=== PATIENT | female | born 1980 | race African-American/Black ===

== ENCOUNTER 2016-08-12 18:25 | Emergency (ER) | payer OTHER ==
[2016-08-12 18:41] VITALS: BP 128/71; PULSE 84; RESP 20; TEMP 99.2
[2016-08-12] MEDS ORDERED: PROPARACAINE 0.5% OPHTH DROPS 15 ML BTL BOTH EYES STA (18:57)
--- NOTE | 2016-08-12 19:14 | ED ---
Eye Problem HPI - General Chief complaint: Eye Problems Stated complaint: allergic reaction Time Seen by Provider: 08/12/16 18:44 Source: patient, RN notes reviewed, old records reviewed Mode of arrival: ambulatory Limitations: no limitations - History of Present Illness Initial comments: 36-year-old female presents to emergency department complaining of swelling and irritation in her left eye. Patient reports that she's had this for the past day. 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 Patient also reports that she had some mosquito bites above her eye and it was very itchy. Patient reports that she put some aloe on the mosquito bites that she may be septic or ALLERGIC reaction to the aloe. Patient states that she's had no change in vision, no drainage of eye. Patient denies any recent fever, chills, shortness of breath, chest pain, back pain, abdominal pain , nausea vomiting, numbness or tingling, dysuria or hematuria, constipation or diarrhea, headaches or visual changes, or any other current symptoms - Related Data Home Medications Medication Instructions Recorded Confirmed Acetaminophen Tab [Tylenol] 500 mg PO Q6H PRN 10/28/15 10/28/15 RX: Albuterol Inhaler [Ventolin 2 puff INHALATION RT-Q6H PRN 10/28/15 10/28/15 Hfa Inhaler] Previous Rx's Medication Instructions Recorded RX: Ibuprofen [Motrin] 600 mg PO Q8HR PRN #30 tab 10/28/15 Olopatadine HCl [Pataday] 1 drop LEFT EYE BID #1 bottle 08/12/16 RX: Erythromycin Ophth Oint 1 applic LEFT EYE QID #1 tube 08/12/16 [Romycin Ophth Oint] Allergies Allergy/AdvReac Type Severity Reaction Status Date / Time No Known Allergies Allergy Verified 08/12/16 18:41 Review of Systems ROS Statement: Those systems with pertinent positive or pertinent negative responses have been documented in the HPI. ROS Other: All systems not noted in ROS Statement are negative. Past Medical History Past Medical History: Asthma History of Any Multi-Drug Resistant Organisms: None Reported Past Surgical History: Section Past Psychological History: Anxiety Smoking Status: Never smoker Past Alcohol Use History: None Reported Past Drug Use History: None Reported General Exam - General Exam Comments Initial Comments: Well-appearing 36-year-old female. No acute distress. Limitations: no limitations General appearance: alert, in no apparent distress Head exam: Present: atraumatic, normocephalic, normal inspection Eye exam: Present: normal appearance, PERRL, EOMI, periorbital swelling (Left eye inferior. Orbital swelling.), other. Absent: scleral icterus, conjunctival injection ENT exam: Present: normal exam, mucous membranes moist Neck exam: Present: normal inspection. Absent: tenderness, meningismus, lymphadenopathy Respiratory exam: Present: normal lung sounds bilaterally. Absent: respiratory distress, wheezes, rales, rhonchi, stridor Cardiovascular Exam: Present: regular rate, normal rhythm, normal heart sounds. Absent: systolic murmur, diastolic murmur, rubs, gallop, clicks GI/Abdominal exam: Present: soft, normal bowel sounds. Absent: distended, tenderness, guarding, rebound, rigid Extremities exam: Present: normal inspection, full ROM, normal capillary refill. Absent: tenderness, pedal edema, joint swelling, calf tenderness Back exam: Present: normal inspection Neurological exam: Present: alert, oriented X3, CN II-XII intact Psychiatric exam: Present: normal affect, normal mood Skin exam: Present: warm, dry, intact, normal color. Absent: rash Course Vital Signs 08/12/16 18:39 Temperature 99.2 F Pulse Rate 84 Respiratory 20 Rate Blood Pressure 128/71 O2 Sat by Pulse 99 Oximetry Medical Decision Making - Medical Decision Making 36-year-old female presents to emergency department complaining of swelling and irritation in her left eye. Patient reports that she's had this for the past day. 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 Patient also reports that she had some mosquito bites above her eye and it was very itchy. Patient reports that she put some aloe on the mosquito bites that she may be septic or ALLERGIC reaction to the aloe. Patient states that she's had no change in vision, no drainage of eye. Vision is some mild inferior and swelling. I exam is performed before seen and proparacaine. Notes any foreign bodies. Patient was started on an ALLERGIC eyedrops, and also erythromycin eye ointment that she is concerned for possible infection. Discussed applying ice over the area. Patient which is ALLERGIC to Benadryl. Discussed that ice will help the most. Patient understood history plan will comply. Return parameters were discussed. Disposition Clinical Impression: Allergic conjunctivitis Disposition: HOME SELF-CARE Condition: Good Instructions: Conjunctivitis (ED) Additional Instructions: Apply the drops and eye twice a day as well as given ointment 4 times a day for the next 3 days. Continue to apply ice over the area. Return to the emergency department if any alarming signs or symptoms occur. Prescriptions: RX: Erythromycin Ophth Oint [Romycin Ophth Oint] 1 applic LEFT EYE QID #1 tube Olopatadine HCl [Pataday] 1 drop LEFT EYE BID #1 bottle Referrals: Alexy Rosado MD [STAFF PHYSICIAN] - 1-2 days Time of Disposition: 19:11
== END 2016-08-12 19:20 | disposition home or self-care (01) ==
LOC: EC 18:25
DX: H10.12 Acute atopic conjunctivitis, left eye (principal)
CPT/HCPCS: 99283

== ENCOUNTER 2016-08-23 08:29 | Emergency (ER) | payer OTHER ==
[2016-08-23 08:40] VITALS: BP 117/69; PULSE 61; RESP 18; TEMP 97.4
--- NOTE | 2016-08-23 08:56 | ED ---
Skin/Abscess/FB HPI - General Chief complaint: Skin/Abscess/Foreign Body Stated complaint: POSS INSECT BITE Time Seen by Provider: 08/23/16 08:44 Source: patient, RN notes reviewed Mode of arrival: ambulatory Limitations: no limitations - History of Present Illness Initial comments: 36-year-old female presents to the emergency department with a chief complaint of insect bites to the right forearm. Patient states that there is mosquito that requesting to up this morning with itching mosquito bites and swelling to the right forearm. Patient denies any fever chills cough cold runny nose. Patient states that she hasn't had any injury to the area. She hasn't had any fever or chills. Patient states she was concerned due to her symptoms so she thought that she should be evaluated. Patient denies any recent fever, chills, shortness of breath, chest pain, back pain, abdominal pain, nausea vomiting, numbness or tingling, dysuria or hematuria, constipation or diarrhea, headaches or visual changes, or any other current symptoms. - Related Data Home Medications Medication Instructions Recorded Confirmed No Known Home Medications [No 08/23/16 08/23/16 Known Home Medications] Previous Rx's Medication Instructions Recorded Cephalexin [Keflex] 500 mg PO Q6HR #40 cap 08/23/16 diphenhydrAMINE & Zinc Cream 1 applic TOPICAL BID #1 tube 08/23/16 [Benadryl Cream] Allergies Allergy/AdvReac Type Severity Reaction Status Date / Time No Known Allergies Allergy Verified 08/23/16 08:40 Review of Systems ROS Statement: Those systems with pertinent positive or pertinent negative responses have been documented in the HPI. ROS Other: All systems not noted in ROS Statement are negative. Past Medical History Past Medical History: Asthma History of Any Multi-Drug Resistant Organisms: None Reported Past Surgical History: Section Past Psychological History: No Psychological Hx Reported Smoking Status: Never smoker Past Alcohol Use History: None Reported Past Drug Use History: None Reported General Exam - General Exam Comments Initial Comments: General: The patient is awake and alert, in no distress, and does not appear acutely ill. Neck: The neck is supple, there is no tenderness. Cardiovascular: There is a regular rate and rhythm. No murmur, rub or gallop is appreciated. Respiratory: Lungs are clear to auscultation, respirations are non-labored, breath sounds are equal. No wheezes, stridor, rales, or rhonchi. Musculoskeletal: Sensation intact with 2+ pulses of the right upper extremity full Range of motion of right elbow and right wrist. Patient does appear to have 3 consecutive that are swollen no induration minimal erythema noted. Patient does complain of itchiness. There does not appear to be any drainage from the areas. It is not limiting patient's range of motion. No streaking. Neurological: CN II-XII intact, There are no obvious motor or sensory deficits. Coordination appears grossly intact. Speech is normal. Skin: Skin is warm and dry and no rashes or lesions are noted. Psychiatric: Normal mood and affect. Limitations: no limitations Course Vital Signs 08/23/16 08:37 Temperature 97.4 F L Pulse Rate 61 Respiratory 18 Rate Blood Pressure 117/69 O2 Sat by Pulse 99 Oximetry Medical Decision Making - Medical Decision Making 36-year-old female presents for insect bite to the right forearm. This was a patient of Benadryl cream and Keflex. We discussed follow-up with the doctor we discussed return parameters all patient's questions. She stated that she understood and she does agree with the plan. Patient will be discharged home. Disposition Clinical Impression: Insect bite of upper extremity Narrative: right Disposition: HOME SELF-CARE Condition: Stable Instructions: Insect Bite or Sting (ED) Additional Instructions: Please use medication as discussed. Please follow up with family doctor if symptoms have not improved over the next two days. Please return to the emergency room if your symptoms increase or worsen or for any other concerns. Prescriptions: Cephalexin [Keflex] 500 mg PO Q6HR #40 cap diphenhydrAMINE & Zinc Cream [Benadryl Cream] 1 applic TOPICAL BID #1 tube Referrals: Earlene Garcia MD [STAFF PHYSICIAN] - 1-2 days Time of Disposition: 08:55
== END 2016-08-23 09:00 | disposition home or self-care (01) ==
LOC: EC 08:29
DX: S50.861A Insect bite (nonvenomous) of right forearm, initial encounter (principal); W57.XXXA Bitten or stung by nonvenomous insect and other nonvenomous arthropods, initial encounter
CPT/HCPCS: 99282

== ENCOUNTER 2016-09-10 20:03 | Emergency (ER) | payer OTHER ==
[2016-09-10 20:36] VITALS: BP 117/71; PULSE 63; RESP 18; TEMP 97.5
[2016-09-10] MEDS ORDERED: predniSONE 50 MG TAB PO STA (20:57)
[2016-09-10] MEDS ORDERED: KETOROLAC 60 MG/2 ML VIAL IM STA (20:59)
--- NOTE | 2016-09-10 21:04 | ED ---
Upper Extremity HPI - General Chief Complaint: Extremity Injury, Upper Stated Complaint: nerve problems/hand Time Seen by Provider: 09/10/16 20:47 Source: patient, RN notes reviewed Mode of arrival: ambulatory Limitations: no limitations - History of Present Illness Initial Comments: Patient is a 36-year-old female presents to the emergency room for evaluation of right hand pain and tingling. Patient states she woke up in the middle the night on with pain in her right wrist radiating into her fifth, fourth and third digits. Patient states never had pain with this before. 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 Patient does state she is left-hand dominant. Patient states it's only her right hand bothering her. Patient states the pain is worse when she is sleeping at night and when she is moving her wrist. Patient denies any specific injury or trauma to her wrist. Patient denies any swelling. Patient states she went to the store to buy a splint with no relief of symptoms. Patient states she has been taking ibuprofen with no relief of symptoms. - Related Data Previous Rx's Medication Instructions Recorded Ibuprofen [Motrin] 600 mg PO Q6HR PRN #30 tab 09/10/16 predniSONE 50 mg PO DAILY #4 tablet 09/10/16 Allergies Allergy/AdvReac Type Severity Reaction Status Date / Time No Known Allergies Allergy Verified 09/10/16 20:54 Review of Systems ROS Statement: Those systems with pertinent positive or pertinent negative responses have been documented in the HPI. ROS Other: All systems not noted in ROS Statement are negative. Past Medical History Past Medical History: Asthma History of Any Multi-Drug Resistant Organisms: None Reported Past Surgical History: Section Past Psychological History: No Psychological Hx Reported Smoking Status: Never smoker Past Alcohol Use History: None Reported Past Drug Use History: None Reported General Exam - General Exam Comments Initial Comments: Sitting in exam chair, no acute distress. Limitations: no limitations General appearance: alert, in no apparent distress Head exam: Present: atraumatic, normocephalic, normal inspection Eye exam: Present: normal appearance ENT exam: Present: normal exam Neck exam: Present: normal inspection Respiratory exam: Absent: respiratory distress Right Hand Wrist exam: Present: normal inspection, full ROM, tenderness (palpating over volar wrist), other (Positive Tinels test, Positive Phalen test) Vascular: Present: normal capillary refill (capillary refill less than 2 seconds ), radial pulse (2+), ulnar pulse (2+) Back exam: Present: normal inspection Neurological exam: Present: alert, oriented X3, CN II-XII intact, normal gait Psychiatric exam: Present: normal affect, normal mood Skin exam: Present: warm, dry, intact, normal color. Absent: rash Course Vital Signs 09/10/16 20:33 Temperature 97.5 F L Pulse Rate 63 Respiratory 18 Rate Blood Pressure 117/71 O2 Sat by Pulse 100 Oximetry Medical Decision Making - Medical Decision Making Patient is a 36-year-old female presents to the emergency room for evaluation of right wrist/hand pain/tingling. No specific injury. X-ray negative for any acute findings. Positive Tinel sign and positive Phalen test. Patient's symptoms consistent with right carpal tunnel syndrome. Patient will be placed on prednisone and ibuprofen. Patient will be written a prescription for right wrist cock-up splint. Advised patient to follow-up with either primary care provider or water treatment specialist if symptoms are not improving in 7-10 days. Patient states she understands everything that was discussed with her. Return parameters discussed. Case discussed with Dr. Machado. - Radiology Data Radiology results: report reviewed, image reviewed Disposition Clinical Impression: Carpal tunnel syndrome, right Disposition: HOME SELF-CARE Condition: Good Instructions: Paresthesia (ED) Additional Instructions: Take prednisone as directed. Take ibuprofen as needed. Wear cock-up splint at night. Please follow up with primary care provider or water treatment specialist for further evaluation if symptoms are not improving in 7-10 days. if new symptoms develop or symptoms worsen, please return to the emergency room. Prescriptions: Ibuprofen [Motrin] 600 mg PO Q6HR PRN #30 tab PRN Reason: Pain predniSONE 50 mg PO DAILY #4 tablet Referrals: Sanju Ordoñez MD [STAFF PHYSICIAN] - 1-2 days Time of Disposition: 21:11
--- NOTE | 2016-09-10 21:09 | XR ---
EXAMINATION TYPE: XR wrist complete RT DATE OF EXAM: 09/10/2016 CLINICAL HISTORY: pain TECHNIQUE: Frontal, lateral and oblique images of the right wrist are obtained. COMPARISON: None. FINDINGS: There is no acute fracture/dislocation evident. The joint spaces appear within normal limits. The o verlying soft tissue appears unremarkable. IMPRESSION: There is no acute fracture or dislocation seen. ICD 10 NO FRACTURE, INITIAL EVALUATION
== END 2016-09-10 21:34 | disposition home or self-care (01) ==
LOC: EC 20:03
DX: G56.01 Carpal tunnel syndrome, right upper limb (principal); Z53.20 Procedure and treatment not carried out because of patient's decision for unspecified reasons
CPT/HCPCS: 73110; 99283; J7512

== ENCOUNTER 2017-09-28 18:09 | Emergency (ER) | payer OTHER ==
[2017-09-28 18:48] VITALS: BP 102/59; RESP 20; TEMP 98.3
[2017-09-28] MEDS ORDERED: IPRATROPIUM-ALBUTEROL 3 ML NEB INHALATION STA (19:45)
[2017-09-28] MEDS ORDERED: methylPREDNISolone SOD SUCCI 125 MG/2 ML VIAL IM ONE (19:46)
--- NOTE | 2017-09-28 20:00 | ED ---
General Adult HPI - General Chief complaint: Shortness of Breath Stated complaint: asthma Time Seen by Provider: 09/28/17 18:45 Source: patient, RN notes reviewed Mode of arrival: ambulatory Limitations: no limitations - History of Present Illness Initial comments: This is a 37-year-old female presents emergency department with a past medical history significant of asthma. Patient comes in today stating she's had difficulty breathing over the last few days was sent home from [facility] 2 days ago with steroids but she states her breathing is gotten any better. Patient states she's also been coughing and coughing up some sputum. Patient denies any fever chills. Patient states she did work today. Patient denies chest pain. Patient denies any sore throat or ear pain or facial tenderness. Patient denies any abdominal pain patient denies nausea vomiting diarrhea. Patient states she takes an inhaler and does not have any machine at home. - Related Data Home Medications Medication Instructions Recorded Confirmed predniSONE See Taper PO DIRECTED 09/28/17 09/28/17 Previous Rx's Medication Instructions Recorded predniSONE 50 mg PO DAILY 4 Days tab 09/28/17 Allergies Allergy/AdvReac Type Severity Reaction Status Date / Time No Known Allergies Allergy Verified 09/28/17 18:48 Review of Systems ROS Statement: Those systems with pertinent positive or pertinent negative responses have been documented in the HPI. ROS Other: All systems not noted in ROS Statement are negative. Past Medical History Past Medical History: Asthma History of Any Multi-Drug Resistant Organisms: None Reported Past Surgical History: Section Past Psychological History: No Psychological Hx Reported Smoking Status: Never smoker Past Alcohol Use History: None Reported Past Drug Use History: None Reported General Exam - General Exam Comments Initial Comments: GENERAL: Patient is well-developed and well-nourished. Patient is nontoxic and well- hydrated and is in mild distress. ENT: Neck is soft and supple. No significant lymphadenopathy is noted. Oropharynx is clear. Moist mucous membranes. EYES: The sclera were anicteric and conjunctiva were pink and moist. Extraocular movements were intact and pupils were equal round and reactive to light. Eyelids were unremarkable. PULMONARY: Slight exudate or wheezing CARDIOVASCULAR: There is a regular rate and rhythm without any murmurs gallops or rubs. ABDOMEN: Soft and nontender with normal bowel sounds. SKIN: Skin is clear with no lesions or rashes and otherwise unremarkable. NEUROLOGIC: Patient is alert and oriented x3. Cranial nerves II through XII are grossly intact. Motor and sensory are also intact. Normal speech, volume and content. Symmetrical smile. MUSCULOSKELETAL: Normal extremities with adequate strength and full range of motion. No lower extremity swelling or edema. No calf tenderness. LYMPHATICS: No significant lymphadenopathy is noted PSYCHIATRIC: Normal psychiatric evaluation. Normal interpersonal interactions appears functionally intact in deals appropriately with others. No signs of depression. No signs of anxiety. Limitations: no limitations Course Vital Signs 09/28/17 09/28/17 09/28/17 18:45 20:11 20:18 Temperature 98.3 F Pulse Rate 63 64 68 Respiratory 20 Rate Blood Pressure 102/59 O2 Sat by Pulse 98 Oximetry Medical Decision Making - Medical Decision Making Chest x-ray shows no acute abnormality. Disposition Clinical Impression: Asthmatic bronchitis Disposition: HOME SELF-CARE Instructions: Asthma (ED) Prescriptions: predniSONE 50 mg PO DAILY 4 Days tab Is patient prescribed a controlled substance at d/c from ED?: No Referrals: None,Stated [Primary Care Provider] - 1-2 days Time of Disposition: 20:37
[2017-09-28 20:19] VITALS: PULSE 68
--- NOTE | 2017-09-28 20:38 | XR ---
EXAMINATION TYPE: XR chest 2V DATE OF EXAM: 09/28/2017 COMPARISON: 10/28/2015 HISTORY: Short of breath TECHNIQUE: Frontal and lateral views of the chest are obtained. FINDINGS: Heart is enlarged. There is no heart failure. There is no pleural effusion. Lungs are yamilka r of infiltrate. IMPRESSION: Moderate cardiomegaly. No acute lung disease. No change.
== END 2017-09-28 20:48 | disposition home or self-care (01) ==
LOC: EC 18:09
DX: J45.909 Unspecified asthma, uncomplicated (principal); Z79.52 Long term (current) use of systemic steroids
CPT/HCPCS: 94640; 71046; 99285; 96372; J2930

== ENCOUNTER 2017-12-01 16:05 | Emergency (ER) | payer OTHER ==
[2017-12-01 16:18] VITALS: BP 112/63; PULSE 68; RESP 18; TEMP 98
--- NOTE | 2017-12-01 16:43 | ED ---
General Adult HPI - General Chief complaint: Skin/Abscess/Foreign Body Stated complaint: Rash Time Seen by Provider: 12/01/17 16:23 Source: patient, RN notes reviewed Mode of arrival: ambulatory Limitations: no limitations - History of Present Illness Initial comments: patient 37-year-old female presenting to the emergency room today with chief complaint of a rash that started after leaving work today. Patient does admit that she went home noticed a spot that was itchy to the left side of the ankle. She states that she tried to clean with some alcohol she states that it seemed like it bubbled up and blistered. She does not that she feels that there is some itchiness to the back of the right hand and a few spots to the volar aspect of the left forearm. Patient states that the areas are itchy. She states she has not taken anything else patient denies any other complaints or associated symptoms. Patient denies any recent fever, chills, shortness of breath, chest pain, back pain, abdominal pain, nausea or vomiting, numbness or tingling, dysuria or hematuria, constipation or diarrhea, headaches or visual changes, or any other complaints. - Related Data Home Medications Medication Instructions Recorded Confirmed predniSONE See Taper PO DIRECTED 09/28/17 09/28/17 Previous Rx's Medication Instructions Recorded predniSONE 50 mg PO DAILY 4 Days tab 09/28/17 Hydrocortisone Cream 1 applic TOPICAL TID #1 cream..g. 12/01/17 [Hydrocortisone 1% Cream] diphenhydrAMINE [Benadryl] 1 - 2 tab PO Q6HR PRN #30 capsule 12/01/17 Allergies Allergy/AdvReac Type Severity Reaction Status Date / Time No Known Allergies Allergy Verified 12/01/17 16:18 Review of Systems ROS Statement: Those systems with pertinent positive or pertinent negative responses have been documented in the HPI. ROS Other: All systems not noted in ROS Statement are negative. Past Medical History Past Medical History: Asthma History of Any Multi-Drug Resistant Organisms: None Reported Past Surgical History: Section Past Psychological History: No Psychological Hx Reported Smoking Status: Never smoker Past Alcohol Use History: None Reported Past Drug Use History: None Reported General Exam - General Exam Comments Initial Comments: General: The patient is awake and alert, in no distress, and does not appear acutely ill. Eye: Pupils are equal, round and reactive to light. Extra-ocular movements are intact. No nystagmus. There is normal conjunctiva bilaterally. No signs of icterus. Ears, nose, mouth and throat: There are moist mucous membranes and no oral lesions. Neck: The neck is supple, there is no tenderness or JVD. Musculoskeletal: Normal ROM, no tenderness. Sensation intact. Strength 5/5. Pulses equal bilaterally 2+. Neurological: A&O x 3. CN II-XII intact, There are no obvious motor or sensory deficits. Coordination appears grossly intact. Speech is normal. Skin: patient does have some flesh covered bumps to the back of the right hand and lower aspect of the left forearm. There is a nonfluctuant. No redness. No sign of infection. Psychiatric: Cooperative, appropriate mood & affect, normal judgment. Limitations: no limitations Course Vital Signs 12/01/17 16:16 Temperature 98.0 F Pulse Rate 68 Respiratory 18 Rate Blood Pressure 112/63 O2 Sat by Pulse 99 Oximetry Medical Decision Making - Medical Decision Making patient will be covered with a taco steroid and Benadryl for her symptoms. She is advised follow-up or return here to the emergency room symptoms increase worsen. Disposition Clinical Impression: Contact dermatitis Disposition: HOME SELF-CARE Condition: Good Instructions: Contact Dermatitis (ED) Additional Instructions: Please use medication as discussed. Please follow-up with family doctor in the next 2 days of symptoms have not improved. Please return to emergency room if the symptoms increase or worsen or for any other concerns. Prescriptions: diphenhydrAMINE [Benadryl] 1 - 2 tab PO Q6HR PRN #30 capsule PRN Reason: Allergic Reaction Hydrocortisone Cream [Hydrocortisone 1% Cream] 1 applic TOPICAL TID #1 cream..g. Is patient prescribed a controlled substance at d/c from ED?: No Referrals: None,Stated [Primary Care Provider] - 1-2 days Time of Disposition: 16:42
== END 2017-12-01 16:48 | disposition home or self-care (01) ==
LOC: EC 16:05
DX: L25.9 Unspecified contact dermatitis, unspecified cause (principal); J45.909 Unspecified asthma, uncomplicated; Z79.52 Long term (current) use of systemic steroids
CPT/HCPCS: 99282

== ENCOUNTER 2017-12-24 10:31 | Emergency (ER) | payer OTHER ==
[2017-12-24 10:36] VITALS: TEMP 98.4
[2017-12-24] MEDS ORDERED: METOCLOPRAMIDE 5 MG/ML 2 ML VIAL IVP STA (11:28)
[2017-12-24] MEDS ORDERED: ACETAMINOPHEN IV (For NPO) 1,000 MG in EMPTY BAG 1 BAG IVPB STA (11:28)
[2017-12-24] MEDS ORDERED: SODIUM CHLORIDE 0.9% 1,000 ML IV STA (11:28)
--- NOTE | 2017-12-24 11:34 | ED ---
General Adult HPI - General Chief complaint: Nausea/Vomiting/Diarrhea Stated complaint: and vomiting blood Time Seen by Provider: 12/24/17 11:18 Source: patient, RN notes reviewed Mode of arrival: wheelchair Limitations: no limitations - History of Present Illness Initial comments: Patient is a G2, P1 37-year-old female presented to the emergency room today with a chief complaint of increased nausea vomiting. She does not that she was at work. She states that she began feeling sick she had an episode of vomiting very dark and possible blood. She states that she had increased abdominal pain on the right side shooting up to the chest. Does admit that she had upper respiratory infection last week with cough congestion. She states the cough has improved. She doesn't that the pain in the chest and abdomen is worse with the cough and certain movements. Patient denies any other complaints or symptoms at this time. Patient denies any recent fever, chills, shortness of breath, back pain, nausea or vomiting, dysuria or hematuria, constipation or diarrhea, headaches or visual changes, or any other complaints. - Related Data Home Medications Medication Instructions Recorded Confirmed [id number] Acid 1 cap PO DAILY 12/24/17 12/24/17 [-U Capsule (formulary)] Allergies Allergy/AdvReac Type Severity Reaction Status Date / Time No Known Allergies Allergy Verified 12/24/17 11:17 Review of Systems ROS Statement: Those systems with pertinent positive or pertinent negative responses have been documented in the HPI. ROS Other: All systems not noted in ROS Statement are negative. Past Medical History Past Medical History: Asthma History of Any Multi-Drug Resistant Organisms: None Reported Past Surgical History: Section Past Psychological History: No Psychological Hx Reported Smoking Status: Never smoker Past Alcohol Use History: None Reported Past Drug Use History: None Reported General Exam - General Exam Comments Initial Comments: General: The patient is awake and alert, in no distress, and does not appear acutely ill. Eye: Pupils are equal, round and reactive to light. Extra-ocular movements are intact. No nystagmus. There is normal conjunctiva bilaterally. No signs of icterus. Ears, nose, mouth and throat: There are moist mucous membranes and no oral lesions. Neck: The neck is supple, there is no tenderness or JVD. Cardiovascular: There is a regular rate and rhythm. No murmur, rub or gallop is appreciated. Pain reproduced on palpation to the anterior right-sided chest wall. Respiratory: Lungs are clear to auscultation, respirations are non-labored, breath sounds are equal. No wheezes, stridor, rales, or rhonchi. Gastrointestinal: Soft, non-distended, non-tender abdomen without masses or organomegaly noted. There is no rebound or guarding present. No CVA tenderness. Musculoskeletal: Normal ROM, no tenderness. Sensation intact. Strength 5/5. Pulses equal bilaterally 2+. Neurological: A&O x 3. CN II-XII intact, There are no obvious motor or sensory deficits. Coordination appears grossly intact. Speech is normal. Skin: Skin is warm and dry and no rashes or lesions are noted. Psychiatric: Cooperative, appropriate mood & affect, normal judgment. Limitations: no limitations Course Vital Signs 12/24/17 12/24/17 10:33 11:54 Temperature 98.4 F Pulse Rate 69 59 L Respiratory 20 18 Rate Blood Pressure 107/68 102/67 O2 Sat by Pulse 98 100 Oximetry Medical Decision Making - Medical Decision Making Patient reexamined at this time shows no signs of distress she is resting comfortable. Her labs been reviewed are unremarkable. Patient experienced some pain to the right side is worse with movements and with cough congestion. She states she did have upper respiratory infection last week which has improved. She still expresses some this pain worse with movement in his she coughs. Lung sounds are clear. Vitals are stable. She mitts that the infection has been improving. Patient is 10 weeks had an ultrasound performed last week at 9 weeks 1 day. Patient's EKG shows normal sinus rhythm. At this time patient will be discharged to follow up the [facility]. No further nausea vomiting here in the emergency room. Patient is advised return if symptoms increase or worsen. Abdomen soft nontender. Digital vaginal bleeding or discharge. - Lab Data Result diagrams: 12/24/17 11:40 12/24/17 11:40 Lab Results 12/24/17 12/24/17 12/24/17 Range/Units 11:40 11:40 11:40 WBC 7.9 (3.8-10.6) k/uL RBC 4.21 (3.80-5.40) m/uL Hgb 11.5 (11.4-16.0) gm/dL Hct 35.2 (34.0-46.0) % MCV 83.5 (80.0-100.0) fL MCH 27.3 (25.0-35.0) pg MCHC 32.7 (31.0-37.0) g/dL RDW 14.7 (11.5-15.5) % Plt Count 286 (150-450) k/uL Neutrophils % 68 % Lymphocytes % 23 % Monocytes % 4 % Eosinophils % 3 % Basophils % 0 % Neutrophils # 5.4 (1.3-7.7) k/uL Lymphocytes # 1.8 (1.0-4.8) k/uL Monocytes # 0.3 (0-1.0) k/uL Eosinophils # 0.3 (0-0.7) k/uL Basophils # 0.0 (0-0.2) k/uL PT 9.5 (9.0-12.0) sec INR 0.9 (<1.2) APTT 25.3 (22.0-30.0) sec Sodium 136 L (137-145) mmol/L Potassium 4.7 (3.5-5.1) mmol/L Chloride 102 (98-107) mmol/L Carbon Dioxide 25 (22-30) mmol/L Anion Gap 9 mmol/L BUN 12 (7-17) mg/dL Creatinine 0.64 (0.52-1.04) mg/dL Est GFR (CKD-EPI)AfAm >90 (>60 ml/min/1.73 sqM) Est GFR (CKD-EPI)NonAf >90 (>60 ml/min/1.73 sqM) Glucose 92 (74-99) mg/dL Calcium 9.5 (8.4-10.2) mg/dL Total Bilirubin 0.3 (0.2-1.3) mg/dL AST 19 (14-36) U/L ALT 25 (9-52) U/L Alkaline Phosphatase 54 (38-126) U/L Total Creatine Kinase (30-135) U/L CK-MB (CK-2) (0.0-2.4) ng/mL CK-MB (CK-2) Rel Index Troponin I (0.000-0.034) ng/mL Total Protein 7.2 (6.3-8.2) g/dL Albumin 3.7 (3.5-5.0) g/dL Urine Color Urine Appearance (Clear) Urine pH (5.0-8.0) Ur Specific [place] (1.001-1.035) Urine Protein (Negative) Urine Glucose (UA) (Negative) Urine Ketones (Negative) Urine Blood (Negative) Urine Nitrite (Negative) Urine Bilirubin (Negative) Urine Urobilinogen (<2.0) mg/dL Ur Leukocyte Esterase (Negative) Urine RBC (0-5) /hpf Urine WBC (0-5) /hpf Ur Squamous Epith Cells (0-4) /hpf Calcium Oxalate Crystal (None) /hpf Urine Bacteria (None) /hpf Urine Mucus (None) /hpf 12/24/17 12/24/17 Range/Units 11:40 11:40 WBC (3.8-10.6) k/uL RBC (3.80-5.40) m/uL Hgb (11.4-16.0) gm/dL Hct (34.0-46.0) % MCV (80.0-100.0) fL MCH (25.0-35.0) pg MCHC (31.0-37.0) g/dL RDW (11.5-15.5) % Plt Count (150-450) k/uL Neutrophils % % Lymphocytes % % Monocytes % % Eosinophils % % Basophils % % Neutrophils # (1.3-7.7) k/uL Lymphocytes # (1.0-4.8) k/uL Monocytes # (0-1.0) k/uL Eosinophils # (0-0.7) k/uL Basophils # (0-0.2) k/uL PT (9.0-12.0) sec INR (<1.2) APTT (22.0-30.0) sec Sodium (137-145) mmol/L Potassium (3.5-5.1) mmol/L Chloride (98-107) mmol/L Carbon Dioxide (22-30) mmol/L Anion Gap mmol/L BUN (7-17) mg/dL Creatinine (0.52-1.04) mg/dL Est GFR (CKD-EPI)AfAm (>60 ml/min/1.73 sqM) Est GFR (CKD-EPI)NonAf (>60 ml/min/1.73 sqM) Glucose (74-99) mg/dL Calcium (8.4-10.2) mg/dL Total Bilirubin (0.2-1.3) mg/dL AST (14-36) U/L ALT (9-52) U/L Alkaline Phosphatase (38-126) U/L Total Creatine Kinase 82 (30-135) U/L CK-MB (CK-2) 0.8 (0.0-2.4) ng/mL CK-MB (CK-2) Rel Index 1.0 Troponin I <0.012 (0.000-0.034) ng/mL Total Protein (6.3-8.2) g/dL Albumin (3.5-5.0) g/dL Urine Color Yellow Urine Appearance Cloudy H (Clear) Urine pH 6.5 (5.0-8.0) Ur Specific [place] 1.022 (1.001-1.035) Urine Protein Negative (Negative) Urine Glucose (UA) Negative (Negative) Urine Ketones Negative (Negative) Urine Blood Negative (Negative) Urine Nitrite Negative (Negative) Urine Bilirubin Negative (Negative) Urine Urobilinogen <2.0 (<2.0) mg/dL Ur Leukocyte Esterase Negative (Negative) Urine RBC 1 (0-5) /hpf Urine WBC 5 (0-5) /hpf Ur Squamous Epith Cells 9 H (0-4) /hpf Calcium Oxalate Crystal Occasional H (None) /hpf Urine Bacteria Rare H (None) /hpf Urine Mucus Rare H (None) /hpf Disposition Clinical Impression: Nausea & vomiting, Upper respiratory infection, Disposition: HOME SELF-CARE Condition: Good Additional Instructions: Please follow-up with [facility] over the next 2 days. Please return to emergency room if any symptoms increase or worsen or for any other concerns. Is patient prescribed a controlled substance at d/c from ED?: No Referrals: None,Stated [Primary Care Provider] - 1-2 days Oleg Montenegro MD [STAFF PHYSICIAN] - 1-2 days Time of Disposition: 13:34
[2017-12-24 11:55] VITALS: BP 102/67; PULSE 59; RESP 18
[2017-12-24 12:28] LABS: ALT 25 U/L (9-52); AST 19 U/L (14-36); Albumin 3.7 g/dL (3.5-5.0); Alkaline Phosphatase 54 U/L (38-126); Anion Gap 9 mmol/L; Blood Urea Nitrogen 12 mg/dL (7-17); Calcium 9.5 mg/dL (8.4-10.2); Carbon Dioxide 25 mmol/L (22-30); Chloride 102 mmol/L (98-107); Glucose 92 mg/dL (74-99); Potassium 4.7 mmol/L (3.5-5.1); Sodium 136 mmol/L (137-145); Total Bilirubin 0.3 mg/dL (0.2-1.3); Total Protein 7.2 g/dL (6.3-8.2)
[2017-12-24 12:32] LABS: Appearance,Urine Cloudy (Clear); Bacteria,Urine Rare /hpf; Bilirubin,Urine Negative (Negative); Blood,Urine Negative (Negative); Calcium Oxalate Crystals,Urine Occasional /hpf; Color,Urine Yellow; Glucose,Urine (UA) Negative (Negative); Ketones,Urine Negative (Negative); Leukocyte Esterase,Urine Negative (Negative); Mucus,Urine Rare /hpf; Nitrite,Urine Negative (Negative); PH, Urine 6.5 (5.0-8.0); Protein,Urine Negative (Negative); RBC,Urine 1 /hpf (0-5); Specific Gravity,Urine 1.022 (1.001-1.035); Squamous Epithelial Cell,Urine 9 /hpf (0-4); Urobilinogen,Urine <2.0 mg/dL (<2.0)
[2017-12-24 12:44] LABS: Creatine Kinase 82 U/L (30-135)
[2017-12-24 12:47] LABS: Basophils % (A) 0 %; Eosinophils # (A) 0.3 k/uL (0-0.7); Eosinophils % (A) 3 %; HCT 35.2 % (34.0-46.0); HGB 11.5 gm/dL (11.4-16.0); Lymphocytes # (A) 1.8 k/uL (1.0-4.8); Lymphocytes % (A) 23 %; MCH 27.3 pg (25.0-35.0); MCHC 32.7 g/dL (31.0-37.0); MCV 83.5 fL (80.0-100.0); Monocytes # (A) 0.3 k/uL (0-1.0); Monocytes % (A) 4 %; Neutrophils # (A) 5.4 k/uL (1.3-7.7); Neutrophils % (A) 68 %; Platelet Count 286 k/uL (150-450); RBC 4.21 m/uL (3.80-5.40); RDW 14.7 % (11.5-15.5); WBC 7.9 k/uL (3.8-10.6)
[2017-12-24 12:56] LABS: Creatine Kinase MB 0.8 ng/mL (0.0-2.4); Troponin I <0.012 ng/mL (0.000-0.034)
[2017-12-24 13:06] LABS: INR 0.9 (<1.2); Partial Thromboplastin Time 25.3 sec (22.0-30.0); Prothrombin Time 9.5 sec (9.0-12.0)
== END 2017-12-24 14:03 | disposition home or self-care (01) ==
LOC: EC 10:31
DX: O99.511 Diseases of the respiratory system complicating pregnancy, first trimester (principal); J06.9 Acute upper respiratory infection, unspecified; O21.9 Vomiting of pregnancy, unspecified; O99.89 Other specified diseases and conditions complicating pregnancy, childbirth and the puerperium; R10.9 Unspecified abdominal pain; R07.9 Chest pain, unspecified; Z98.890 Other specified postprocedural states; Z3A.10 10 weeks gestation of pregnancy
CPT/HCPCS: 36415; 93005; 80053; 82550; 82553; 84484; 85025; 85610; 85730; 81001; 84702; 99285; 96365; 96366; 96375; J2765; J0131

== ENCOUNTER 2018-03-06 15:00 | Emergency (ER) | payer OTHER ==
[2018-03-06 16:17] VITALS: RESP 18; TEMP 98.2
--- NOTE | 2018-03-06 17:32 | ED ---
Abdominal Pain HPI - General Chief Complaint: Abdominal Pain Stated Complaint: Rt flank pain, 19 weeks Time Seen by Provider: 03/06/18 16:35 Source: patient, RN notes reviewed Mode of arrival: ambulatory Limitations: no limitations - History of Present Illness Initial Comments: 37-year-old female presents emergency Department chief complaint of right side pain, low back pain. Patient states has been painful over the last week. Patient states that she has not talked her SHANK PINNER about this. Patient states she is 19 weeks and 3 days . Denies any vaginal bleeding, vaginal discharge, abdominal cramping, nausea vomiting diarrhea constipation no dysuria no hematuria. Patient's SHANK PINNER is Dr. Montenegro. Patient is A0. Patient states that the pain is worse with movement. She did try some Tylenol at some relief. - Related Data Home Medications Medication Instructions Recorded Confirmed [id number] Acid 1 cap PO DAILY 12/24/17 03/06/18 [-U Capsule (formulary)] Allergies Allergy/AdvReac Type Severity Reaction Status Date / Time No Known Allergies Allergy Verified 03/06/18 16:36 Review of Systems ROS Statement: Those systems with pertinent positive or pertinent negative responses have been documented in the HPI. ROS Other: All systems not noted in ROS Statement are negative. Past Medical History Past Medical History: Asthma History of Any Multi-Drug Resistant Organisms: None Reported Past Surgical History: Section Past Psychological History: No Psychological Hx Reported Smoking Status: Never smoker Past Alcohol Use History: None Reported Past Drug Use History: None Reported General Exam Limitations: no limitations General appearance: alert, in no apparent distress Head exam: Present: atraumatic, normocephalic, normal inspection Eye exam: Present: normal appearance, PERRL, EOMI. Absent: scleral icterus, conjunctival injection, periorbital swelling Respiratory exam: Present: normal lung sounds bilaterally. Absent: respiratory distress, wheezes, rales, rhonchi, stridor Cardiovascular Exam: Present: regular rate, normal rhythm, normal heart sounds. Absent: systolic murmur, diastolic murmur, rubs, gallop, clicks GI/Abdominal exam: Present: soft, normal bowel sounds, other (Abdomen normal for gestational age). Absent: distended, tenderness, guarding, rebound, rigid Back exam: Present: full ROM, tenderness, paraspinal tenderness. Absent: CVA tenderness (R), CVA tenderness (L), vertebral tenderness Neurological exam: Present: alert, oriented X3, CN II-XII intact Skin exam: Present: warm, dry, intact, normal color. Absent: rash Course Vital Signs 03/06/18 16:14 Temperature 98.2 F Pulse Rate 92 Respiratory 18 Rate Blood Pressure 122/68 O2 Sat by Pulse 100 Oximetry Medical Decision Making - Medical Decision Making 37-year-old female presented for low back pain on the right. Patient had ultrasound secondary to hematuria noted on ultrasound. Patient normal heart tones., Patient has normal lab work. Patient has muscle skeletal low back pain advised to take Tylenol, topical heat and ice. Return parameters were discussed. Patient has no red flag symptoms no bowel bladder incontinence or retention. Patient has no complaints of her at this time. - Lab Data Result diagrams: 03/06/18 19:03 03/06/18 19:03 Lab Results 03/06/18 03/06/18 03/06/18 Range/Units 17:25 19:03 19:03 WBC 8.1 (3.8-10.6) k/uL RBC 3.81 (3.80-5.40) m/uL Hgb 10.2 L (11.4-16.0) gm/dL Hct 32.1 L (34.0-46.0) % MCV 84.2 (80.0-100.0) fL MCH 26.8 (25.0-35.0) pg MCHC 31.8 (31.0-37.0) g/dL RDW 15.1 (11.5-15.5) % Plt Count 269 (150-450) k/uL Neutrophils % 70 % Lymphocytes % 21 % Monocytes % 4 % Eosinophils % 3 % Basophils % 0 % Neutrophils # 5.6 (1.3-7.7) k/uL Lymphocytes # 1.7 (1.0-4.8) k/uL Monocytes # 0.3 (0-1.0) k/uL Eosinophils # 0.3 (0-0.7) k/uL Basophils # 0.0 (0-0.2) k/uL Sodium 137 (137-145) mmol/L Potassium 4.0 (3.5-5.1) mmol/L Chloride 108 H (98-107) mmol/L Carbon Dioxide 23 (22-30) mmol/L Anion Gap 6 mmol/L BUN 8 (7-17) mg/dL Creatinine 0.50 L (0.52-1.04) mg/dL Est GFR (CKD-EPI)AfAm >90 (>60 ml/min/1.73 sqM) Est GFR (CKD-EPI)NonAf >90 (>60 ml/min/1.73 sqM) Glucose 93 (74-99) mg/dL Calcium 9.1 (8.4-10.2) mg/dL Urine Color Yellow Urine Appearance Cloudy H (Clear) Urine pH 6.0 (5.0-8.0) Ur Specific [place] 1.021 (1.001-1.035) Urine Protein Trace H (Negative) Urine Glucose (UA) Negative (Negative) Urine Ketones Negative (Negative) Urine Blood Negative (Negative) Urine Nitrite Negative (Negative) Urine Bilirubin Negative (Negative) Urine Urobilinogen <2.0 (<2.0) mg/dL Ur Leukocyte Esterase Small H (Negative) Urine RBC 7 H (0-5) /hpf Urine WBC 4 (0-5) /hpf Ur Squamous Epith Cells 7 H (0-4) /hpf Urine Bacteria Rare H (None) /hpf Urine Mucus Moderate H (None) /hpf Disposition Clinical Impression: Lumbar back pain Disposition: HOME SELF-CARE Condition: Stable Instructions: Acute Low Back Pain (ED) Additional Instructions: Please return to the Emergency Department if symptoms worsen or any other concerns. Is patient prescribed a controlled substance at d/c from ED?: No Referrals: None,Stated [Primary Care Provider] - 1-2 days Time of Disposition: 19:41
[2018-03-06 17:45] LABS: Appearance,Urine Cloudy (Clear); Bacteria,Urine Rare /hpf; Bilirubin,Urine Negative (Negative); Blood,Urine Negative (Negative); Color,Urine Yellow; Glucose,Urine (UA) Negative (Negative); Ketones,Urine Negative (Negative); Leukocyte Esterase,Urine Small (Negative); Mucus,Urine Moderate /hpf; Nitrite,Urine Negative (Negative); Protein,Urine Trace (Negative); RBC,Urine 7 /hpf (0-5); Specific Gravity,Urine 1.021 (1.001-1.035); Squamous Epithelial Cell,Urine 7 /hpf (0-4); Urobilinogen,Urine <2.0 mg/dL (<2.0); WBC,Urine 4 /hpf (0-5)
--- NOTE | 2018-03-06 19:08 | US ---
EXAMINATION TYPE: US renals and bladder DATE OF EXAM: 03/06/2018 COMPARISON: NONE CLINICAL HISTORY: right flank pain. RLQ pain EXAM MEASUREMENTS: Right Kidney: 10.6 x 4.4 x 4.7 cm Left Kidney: 11.8 x 5.7 x 4.3 cm Right Kidney: No hydronephrosis or masses seen Left Kidney: No hydronephrosis or masses seen Bladder: Not fully distended. Bilateral Jets seen: No There is no evidence for hydronephrosis at this point in time. No nephrolithiasis is seen. No lupis s are identified. The urinary bladder is anechoic. IMPRESSION: No evidence of renal mass or obstruction. No ureteral jets were seen during the exam. No evidence of a bladder mass.
[2018-03-06 19:11] LABS: Basophils % (A) 0 %; Eosinophils # (A) 0.3 k/uL (0-0.7); Eosinophils % (A) 3 %; HCT 32.1 % (34.0-46.0); HGB 10.2 gm/dL (11.4-16.0); Lymphocytes # (A) 1.7 k/uL (1.0-4.8); Lymphocytes % (A) 21 %; MCH 26.8 pg (25.0-35.0); MCHC 31.8 g/dL (31.0-37.0); MCV 84.2 fL (80.0-100.0); Monocytes # (A) 0.3 k/uL (0-1.0); Monocytes % (A) 4 %; Neutrophils # (A) 5.6 k/uL (1.3-7.7); Neutrophils % (A) 70 %; Platelet Count 269 k/uL (150-450); RBC 3.81 m/uL (3.80-5.40); RDW 15.1 % (11.5-15.5); WBC 8.1 k/uL (3.8-10.6)
[2018-03-06 19:28] LABS: Anion Gap 6 mmol/L; Blood Urea Nitrogen 8 mg/dL (7-17); Calcium 9.1 mg/dL (8.4-10.2); Carbon Dioxide 23 mmol/L (22-30); Chloride 108 mmol/L (98-107); Glucose 93 mg/dL (74-99); Sodium 137 mmol/L (137-145)
[2018-03-06 19:52] VITALS: BP 103/68; PULSE 82
== END 2018-03-06 19:53 | disposition home or self-care (01) ==
LOC: EC 15:00
DX: O99.89 Other specified diseases and conditions complicating pregnancy, childbirth and the puerperium (principal); M54.5 Low back pain; O26.892 Other specified pregnancy related conditions, second trimester; R10.9 Unspecified abdominal pain; R31.9 Hematuria, unspecified; Z3A.19 19 weeks gestation of pregnancy
CPT/HCPCS: 36415; 76770; 80048; 81001; 85025; 99284

== ENCOUNTER → 2018-04-13 | Outpatient (CLI) | payer OTHER | END | disposition home or self-care (01) | LOC: LABWHC1 08:57 | PROVIDERS: ATTEND Obstetrics & Gynecology | DX: Z34.82 Encounter for supervision of other normal pregnancy, second trimester (principal) | CPT/HCPCS: 36415; 82950; 86850 ==

== ENCOUNTER 2018-05-06 11:14 | Outpatient (CLI) | payer OTHER ==
[2018-05-06 11:43] VITALS: BP 103/68; PULSE 80; RESP 16; TEMP 97.7
[2018-05-06] MEDS: LACTATED RINGERS 1,000 ML IV SCH ×2 (12:02→13:39)
--- NOTE | 2018-05-07 06:35 | P.MSEPDOC ---
Presenting Problems - Arrival Data Date of Arrival on Unit: 05/06/18 Time of Arrival on Unit: 11:14 Mode of Transport: Wheelchair - Complaint OB-Reason for Admission/Chief Complaint: Pain, Dizziness Comment: right upper quad pain, dizzy Medical History - Information : 2 Para: 1 Term: 1 : 0 Abortions: Spontaneous or Elective: 0 Number of Living Children: 1 - Gestational Age Gestational Age by YEMI (wks/days): 29 Weeks and 0 Days Review of Systems - Review of Systems Constitutional: No problems Breast: No problems ENT: No problems Cardiovascular: No problems Respiratory: No problems Gastrointestinal: No problems Genitourinary: No problems Musculoskeletal: No problems Neurological: Dizziness Skin: No problems Vital Signs - Temperature Temperature: 97.7 F Temperature Source: Temporal Artery Scan - Pulse Right Brachial Pulse Rate: 80 Pulse Assessment Method: Automatic Cuff - Respirations Respiratory Rate: 16 Oxygen Delivery Method: Room Air O2 Sat by Pulse Oximetry: 97 - Blood Pressure Right Arm Blood Pressure: 103/68 Blood Pressure Mean: 79 Blood Pressure Source: Automatic Cuff Medical Screen Scoring (Pre) - Uterine Contractions Frequency: N/A - Maternal Vital Signs Maternal Temperature: N/A Maternal Blood Pressure: N/A Signs of Preeclampsia: N/A Maternal Respirations: N/A - Pain Assessment Pain Location and Character: Right, Upper, Abdomen Pain Scale Used: Numeric (1 - 10) Pain Intensity: 7 Pain Description: *Acute, Shooting Pain Duration: 4 Pain Duration Units: Hours Pain Behavior: Facial Grimacing Non-Pharmacological Interventions: Position/Reposition, Reduce Environmental Stimuli - Assessment Baseline FHR: 125 Heart Rate - NICHD Category: Category II (Indeterminate) = 3 NST: Reactive - Total Score Total Score (Pre): 3 - Level of Risk Level of Risk: Low (0-5) Medical Screen Scoring (Post) - Assessment NST: Reactive - Total Score Total Score (Post): 0 - Post Treatment Level of Risk Post Treatment Level of Risk: Low (0-5) Physician Notification (Post) - Physician Notified Physician Notified Date: 05/06/18 Physician Notified Time: 13:05 Spoke With: Moni Mora Order Received: Yes (discharge with instruction) - Notification Comment Comment: pt no longer dizzy, does continue to have pain Disposition - Disposition OB Disposition: Discharge to home, Written follow up instructions reviewed Discharge Date: 05/06/18 Discharge Time: 13:10 I agree with the RN Medical Screening Exam: Yes Risk & Benefit of care provided described in d/c instruction: Yes Diagnosis: DEHYDRATION
== END 2018-05-06 13:10 | disposition home or self-care (01) ==
LOC: FBPOP 11:14
PROVIDERS: ATTEND Obstetrics & Gynecology
DX: O99.283 Endocrine, nutritional and metabolic diseases complicating pregnancy, third trimester (principal); E86.0 Dehydration; Z3A.29 29 weeks gestation of pregnancy
CPT/HCPCS: 59025; 96360; 96361; G0463; 99214

== ENCOUNTER 2018-05-09 09:12 | Outpatient (CLI) | payer OTHER ==
[2018-05-09 09:55] VITALS: BP 90/55; PULSE 92; RESP 18; TEMP 98
[2018-05-09 09:58] LABS: Appearance,Urine Cloudy (Clear); Bacteria,Urine Many /hpf; Bilirubin,Urine Negative (Negative); Blood,Urine Negative (Negative); Color,Urine Yellow; Glucose,Urine (UA) Negative (Negative); Ketones,Urine Negative (Negative); Leukocyte Esterase,Urine Small (Negative); Mucus,Urine Moderate /hpf; Nitrite,Urine Negative (Negative); PH, Urine 6.5 (5.0-8.0); Protein,Urine Trace (Negative); Specific Gravity,Urine 1.018 (1.001-1.035); Squamous Epithelial Cell,Urine 12 /hpf (0-4); Urobilinogen,Urine <2.0 mg/dL (<2.0)
--- NOTE | 2018-05-09 10:37 | US ---
EXAMINATION TYPE: US OB >= 14 wk fetus DATE OF EXAM: 05/09/2018 COMPARISON: None CLINICAL HISTORY: abdominal painRight flank pain TECHNIQUE: Transabdominal (TA) GESTATIONAL AGE / DATING Physician Established: (29 weeks/3 days) EDC: 07/22/2018 Dates by LMP: Unknown Dates by First Scan: This is 1st scan Dates by Current Scan: (29 weeks/2 days) EDC: 07/23/2018 SURVEY IUP: Single PLACENTA: Posterior PREVIA: No Previa MICHAEL: 16.1 cm Normal CERVICAL LENGTH (transabdominal: norm > 3.0cm): 3.4 cm BIOMETRY PRESENTATION: Breech LIE: Longitudinal BPD: 7.4 cm 29 weeks / 4 days HC: 27.6 cm 30 weeks / 1 days AC: 24.7 cm 29 weeks / 0 days FL: 5.6 cm 29 weeks / 4 days ESTIMATED WEIGHT IN GRAMS: 1375 grams ESTIMATED WEIGHT IN LBS/OZ: 3 lbs. 1 oz. WEIGHT PERCENTAGE BASED ON ESTABLISHED DATES: 33% HC/AC: 1.12 Normal FL/AC: 22.80 Normal HEART RATE: 143 bpm RHYTHM: Normal Single live intrauterine gestation is identified. Breech presentation to fetus is currently seen. No ultrasound evidence for placenta previa previa. Amniotic fluid index is calculated at upper limits of normal. Cervix is not thinned. biometry measurements are concordant felt within normal limits as detailed above. IMPRESSION: As above.
[2018-05-09 10:42] LABS: Basophils % (A) 0 %; Eosinophils # (A) 0.1 k/uL (0-0.7); Eosinophils % (A) 2 %; HCT 33.6 % (34.0-46.0); HGB 10.7 gm/dL (11.4-16.0); Hypochromasia Slight; Lymphocytes # (A) 1.4 k/uL (1.0-4.8); Lymphocytes % (A) 20 %; MCH 26.4 pg (25.0-35.0); MCHC 31.8 g/dL (31.0-37.0); Mean Platelet Volume 7.7; Monocytes # (A) 0.3 k/uL (0-1.0); Monocytes % (A) 5 %; Neutrophils # (A) 4.8 k/uL (1.3-7.7); Neutrophils % (A) 72 %; Platelet Count 269 k/uL (150-450); RBC 4.05 m/uL (3.80-5.40); RDW 15.2 % (11.5-15.5); WBC 6.7 k/uL (3.8-10.6)
[2018-05-09 10:59] LABS: Potassium 4.1 mmol/L (3.5-5.1)
[2018-05-09 11:00] LABS: ALT 27 U/L (9-52); AST 13 U/L (14-36); Albumin 3.2 g/dL (3.5-5.0); Alkaline Phosphatase 80 U/L (38-126); Anion Gap 7 mmol/L; Blood Urea Nitrogen 8 mg/dL (7-17); Calcium 8.9 mg/dL (8.4-10.2); Carbon Dioxide 22 mmol/L (22-30); Chloride 107 mmol/L (98-107); Glucose 89 mg/dL (74-99); Sodium 136 mmol/L (137-145); Total Bilirubin 0.3 mg/dL (0.2-1.3); Total Protein 6.5 g/dL (6.3-8.2)
--- NOTE | 2018-05-09 11:28 | US ---
EXAMINATION TYPE: US abdomen limited DATE OF EXAM: 05/09/2018 COMPARISON: Bilateral renal ultrasound March 06, 2018. CLINICAL HISTORY: abdominal pain. Right flank pain, patient is 29 weeks , patient not NPO EXAM MEASUREMENTS: Liver Length: 18.5 cm Gallbladder Wall: 0.2 cm CBD: 0.3 cm Right Kidney: 10.7 x 5.0 x 6.4 cm Difficult and limited study due to intercostal scanning and patient body habitus. Pancreas: visualized portions wnl, limited by overlying midline bowel gas Liver: enlarged Gallbladder: wnl Evidence for sonographic Flores's sign: no CBD: visualized portions wnl, limited by overlying bowel gas Right Kidney: 0.5cm echogenic focus lateral mid pole Suboptimal study due to body habitus and known early third trimester gestation. Visualized liver show s no worrisome mass. Visualized gallbladder shows no shadowing stones or surrounding fluid. Nonspecif ic 5 mm nonshadowing hyperechoic focus lower pole level right kidney seen on current study not clearl y seen on recent renal ultrasound. More importantly no hydronephrosis is evident on current study. IMPRESSION: No shadowing mobile gallstones or ultrasound evidence for acute cholecystitis.
--- NOTE | 2018-05-10 06:24 | P.MSEPDOC ---
Presenting Problems - Arrival Data Date of Arrival on Unit: 05/09/18 Time of Arrival on Unit: 09:15 Mode of Transport: Portable - Complaint OB-Reason for Admission/Chief Complaint: Pain Comment: pt c/o right upper quadrant pain radiating to the right upper chest Medical History - Information : 2 Para: 1 Term: 1 : 0 Abortions: Spontaneous or Elective: 0 Number of Living Children: 1 - Gestational Age Gestational Age by YEMI (wks/days): 29 Weeks and 3 Days - History Complications: Prior Review of Systems - Review of Systems Constitutional: No problems Breast: No problems ENT: No problems Cardiovascular: No problems Respiratory: No problems Gastrointestinal: No problems Genitourinary: No problems Musculoskeletal: No problems Neurological: No problems Skin: No problems Vital Signs - Temperature Temperature: 98.0 F Temperature Source: Oral - Pulse Right Sitting Brachial Pulse Rate: 92 Pulse Assessment Method: Automatic Cuff - Respirations Respiratory Rate: 18 Oxygen Delivery Method: Room Air O2 Sat by Pulse Oximetry: 98 - Blood Pressure Right Arm Sitting Blood Pressure: 90/55 Blood Pressure Mean: 66 Blood Pressure Source: Automatic Cuff Medical Screen Scoring (Pre) - Cervical Exam Dilation: Exam Deferred Effacement: Exam Deferred - Uterine Contractions Frequency: N/A Duration: N/A Intensity: N/A - Maternal Vital Signs Maternal Temperature: N/A Maternal Blood Pressure: N/A Signs of Preeclampsia: N/A Maternal Respirations: N/A - Pain Assessment Pain Scale Used: Numeric (1 - 10) Pain Intensity: 10 Pain Description: Sharp Pain Radiation Location: right upper chest Pain Frequency: Frequent Pain Duration: 10 Pain Duration Units: Minutes Pain Behavior: None Exhibited Effects of Pain: none Pain Aggravating Factors: Standing - Maternal Trauma Maternal Trauma: N/A - Assessment Baseline FHR: 125 Heart Rate - NICHD Category: Category I (Normal) = 0 NST: Reactive Position: N/A Station: N/A - Total Score Total Score (Pre): 0 - Level of Risk Level of Risk: Low (0-5) Physician Notification (Pre) - Physician Notified Physician Notified Date: 05/09/18 Physician Notified Time: 09:34 Physician/Practitioner Notifed:: dr Montenegro Spoke With: Dr Montenegro - Notification Comment Comment: CBC, CMP, US, UA. will call with results. Medical Screen Scoring (Post) - Cervical Exam Dilation: Exam Deferred Effacement: Exam Deferred - Uterine Contractions Frequency: N/A Duration: N/A Intensity: N/A - Maternal Vital Signs Maternal Temperature: N/A Maternal Blood Pressure: N/A Signs of Preeclampsia: N/A Maternal Respirations: N/A - Pain Assessment Pain Intensity: 10 - Total Score Total Score (Post): 0 - Post Treatment Level of Risk Post Treatment Level of Risk: Low (0-5) Physician Notification (Post) - Physician Notified Physician Notified Date: 05/09/18 Physician Notified Time: 11:45 Physician/Practitioner Notified:: Dr Montenegro Spoke With: Dr Montenegro New Order Received: Yes - Notification Comment Comment: dc home. rest, tylenol as directed, increase po fluids. Disposition - Disposition OB Disposition: Discharge to home Discharge Date: 05/09/18 Discharge Time: 11:46 I agree with the RN Medical Screening Exam: Yes Risk & Benefit of care provided described in d/c instruction: Yes Diagnosis: UNSPECIFIED ABDOMINAL PAIN
== END 2018-05-09 11:47 | disposition home or self-care (01) ==
LOC: FBPOP 09:12
PROVIDERS: ATTEND Obstetrics & Gynecology
DX: O26.893 Other specified pregnancy related conditions, third trimester (principal); R10.11 Right upper quadrant pain; Z3A.29 29 weeks gestation of pregnancy
CPT/HCPCS: 59025; 80053; 85025; 81001; 87086; 76705; 76805; G0463; 99213

== ENCOUNTER 2018-06-16 00:13 | Outpatient (CLI) | payer OTHER ==
[2018-06-16 01:30] LABS: Amorphous Sediment,Urine Occasional /hpf; Appearance,Urine Cloudy (Clear); Bacteria,Urine Few /hpf; Bilirubin,Urine Negative (Negative); Blood,Urine Negative (Negative); Color,Urine Yellow; Glucose,Urine (UA) Negative (Negative); Ketones,Urine Negative (Negative); Leukocyte Esterase,Urine Small (Negative); Mucus,Urine Rare /hpf; Nitrite,Urine Negative (Negative); PH, Urine 6.5 (5.0-8.0); Protein,Urine Negative (Negative); RBC,Urine 1 /hpf (0-5); Specific Gravity,Urine 1.015 (1.001-1.035); Squamous Epithelial Cell,Urine 12 /hpf (0-4); Urobilinogen,Urine <2.0 mg/dL (<2.0); WBC,Urine 2 /hpf (0-5)
[2018-06-16 02:02] VITALS: BP 120/66; PULSE 74; RESP 16; TEMP 98.3
--- NOTE | 2018-06-16 04:33 | P.MSEPDOC ---
Presenting Problems - Arrival Data Date of Arrival on Unit: 06/16/18 Time of Arrival on Unit: 00:13 Mode of Transport: Wheelchair - Complaint OB-Reason for Admission/Chief Complaint: Pain Comment: pt c/o pain in her left side lower abdomen that began at 2230 Medical History - Information : 1 Para: 0 Term: 1 : 0 Abortions: Spontaneous or Elective: 0 Number of Living Children: 1 - Gestational Age Gestational Age by YEMI (wks/days): 34 Weeks and 6 Days - History Complications: Prior Review of Systems - Review of Systems Constitutional: No problems Breast: No problems ENT: No problems Cardiovascular: No problems Respiratory: No problems Gastrointestinal: No problems Genitourinary: No problems Musculoskeletal: No problems Neurological: No problems Skin: No problems Vital Signs - Temperature Temperature: 98.3 F Temperature Source: Oral - Pulse Right Pulse Rate: 74 Pulse Assessment Method: Automatic Cuff - Respirations Respiratory Rate: 16 Oxygen Delivery Method: Room Air O2 Sat by Pulse Oximetry: 96 - Blood Pressure Right Arm Blood Pressure: 120/66 Blood Pressure Mean: 84 Blood Pressure Source: Automatic Cuff Medical Screen Scoring (Pre) - Cervical Exam Dilation: Exam Deferred Effacement: Exam Deferred - Uterine Contractions Frequency: N/A Duration: N/A Intensity: N/A - Maternal Vital Signs Maternal Temperature: N/A Maternal Blood Pressure: N/A Signs of Preeclampsia: N/A Maternal Respirations: N/A - Pain Assessment Pain Location and Character: Left, Lower, Abdomen Pain Scale Used: Numeric (1 - 10) Pain Intensity: 6 Pain Management Goal: 3 Pain Description: *Acute, Sharp Pain Frequency: Constant Pain Behavior: Decreased Activity Pain Aggravating Factors: Activity - Total Score Total Score (Pre): 0 - Level of Risk Level of Risk: Low (0-5) Physician Notification (Pre) - Physician Notified Physician Notified Date: 06/16/18 Physician Notified Time: 00:40 Physician/Practitioner Notifed:: Dr Tao Mora Order Received: Yes - Notification Comment Comment: send urine for u/a, call back with results Physician Notification (Post) - Physician Notified Physician Notified Date: 06/16/18 Physician Notified Time: 01:38 Physician/Practitioner Notified:: Dr Tao Mora Order Received: Yes - Notification Comment Comment: reported results of u/a, orders to d/c pt home Disposition - Disposition OB Disposition: Discharge to home Discharge Date: 06/16/18 Discharge Time: 01:50 I agree with the RN Medical Screening Exam: Yes Risk & Benefit of care provided described in d/c instruction: Yes Diagnosis: FALSE LABOR BEFORE 37 COMPLETED WEEKS OF GEST, THIRD TRI
== END 2018-06-16 01:50 | disposition home or self-care (01) ==
LOC: FBPOP 00:13
PROVIDERS: ATTEND Obstetrics & Gynecology
DX: O47.03 False labor before 37 completed weeks of gestation, third trimester (principal); Z3A.34 34 weeks gestation of pregnancy
CPT/HCPCS: 59025; 81001; G0463; 99213

== ENCOUNTER → 2018-06-19 | Outpatient (CLI) | payer OTHER ==
--- NOTE | 2018-06-20 07:12 | US ---
EXAMINATION TYPE: US OB >= 14 wk fetus DATE OF EXAM: 06/19/2018 COMPARISON: US CLINICAL HISTORY: O43.193 MARGINAL CORD INSERTIONGrowth, marginal cord insertion TECHNIQUE: Transabdominal (TA) GESTATIONAL AGE / DATING Physician Established: (36 weeks/2 days) EDC: 07/15/2018 Dates by LMP: Unknown Dates by First Scan: (35 weeks/0 days) EDC: 07/23/2018 Dates by Current Scan: (36 weeks/0 days) EDC: 07/17/2018 SURVEY IUP: Single PLACENTA: Posterior PREVIA: No Previa MICHAEL: 13.5 cm Normal CERVICAL LENGTH (transabdominal: norm > 3.0cm): 3.7 cm BIOMETRY PRESENTATION: Breech BPD: 8.9 cm 35 weeks / 6 days HC: 32.3 cm 36 weeks / 4 days AC: 32.0 cm 36 weeks / 0 days FL: 6.9 cm 35 weeks / 4 days ESTIMATED WEIGHT IN GRAMS: 2800 grams ESTIMATED WEIGHT IN LBS/OZ: 6 lbs. 3 oz. WEIGHT PERCENTAGE BASED ON ESTABLISHED DATES: 41.9% HC/AC: 1.01 Normal FL/AC: 22 Normal HEART RATE: 135 bpm RHYTHM: Normal Single, viable IUP/ Growth parameters in 42nd percentile/ Umbilical cord difficult to visualize due t o age and posterior placental location IMPRESSION: Single, viable of 36 weeks 0 days with an EDC of 07/17/2018. Growth Parameters in 42nd percentile/ Umbi lical cord difficult to visualize due to age and posterior placental location correlate clinica lly. Note is made anatomy assessment was not performed.
== END | disposition home or self-care (01) ==
LOC: RADUSWWP 15:40
PROVIDERS: ATTEND Obstetrics & Gynecology
DX: O43.193 Other malformation of placenta, third trimester (principal); Z3A.36 36 weeks gestation of pregnancy
CPT/HCPCS: 76805

== ENCOUNTER 2018-07-04 10:29 | Outpatient (CLI) | payer OTHER ==
[2018-07-04 11:45] VITALS: BP 119/59; PULSE 87; RESP 20; TEMP 96.6
--- NOTE | 2018-07-04 13:22 | P.MSEPDOC ---
Presenting Problems - Arrival Data Date of Arrival on Unit: 07/04/18 Time of Arrival on Unit: 10:50 Mode of Transport: Wheelchair - Complaint Comment: pt arrived c/o being dizzy and lower abd and back discomfort. pt aslo c/o pinkish dicharge when she wiped with a tissure. pt was at work when she noticed this Medical History - Information : 2 Para: 1 Term: 1 : 0 Abortions: Spontaneous or Elective: 0 Number of Living Children: 1 - Gestational Age Gestational Age by YEMI (wks/days): 37 Weeks and 3 Days - History Complications: Prior Review of Systems - Review of Systems Constitutional: No problems ENT: Nasal congestion Cardiovascular: No problems Respiratory: No problems Gastrointestinal: No problems Genitourinary: No problems Musculoskeletal: No problems Neurological: Dizziness Skin: No problems Vital Signs - Temperature Temperature: 96.6 F Temperature Source: Temporal Artery Scan - Pulse Right Brachial Pulse Rate: 87 Pulse Assessment Method: Automatic Cuff - Respirations Respiratory Rate: 20 Oxygen Delivery Method: Room Air - Blood Pressure Right Arm Blood Pressure: 119/59 Blood Pressure Mean: 79 Blood Pressure Source: Automatic Cuff Medical Screen Scoring (Pre) - Cervical Exam Dilation: 0 cm = 0 Membranes: Intact - Uterine Contractions Frequency: N/A Duration: N/A Intensity: N/A - Maternal Vital Signs Maternal Temperature: N/A Signs of Preeclampsia: N/A Maternal Respirations: N/A - Pain Assessment Pain Scale Used: Numeric (1 - 10) Pain Intensity: 7 Pain Management Goal: 2 Pain Description: Sore Pain Radiation Location: n/a Pain Frequency: Occasional Pain Duration: 50 Pain Duration Units: Minutes Pain Behavior: Vocalization Pain Aggravating Factors: Position Non-Pharmacological Interventions: Reduce Environmental Stimuli - Maternal Trauma Maternal Trauma: N/A - Total Score Total Score (Pre): 0 Medical Screen Scoring (Post) - Assessment Heart Rate: 120 Heart Rate - NICHD Category: Category I (Normal) = 0 NST: Reactive Position: N/A Station: N/A - Total Score Total Score (Post): 0 - Post Treatment Level of Risk Post Treatment Level of Risk: Low (0-5) Physician Notification (Post) - Physician Notified Physician Notified Date: 07/04/18 Physician Notified Time: 12:10 Spoke With: dr glez New Order Received: Yes - Notification Comment Comment: reactive nst no bleeding noted. may discharge to home with instructions Disposition - Disposition OB Disposition: Discharge to home Discharge Date: 07/04/18 Discharge Time: 12:24 I agree with the RN Medical Screening Exam: Yes Risk & Benefit of care provided described in d/c instruction: Yes Diagnosis: FALSE LABOR AT OR AFTER 37 COMPLETED WEEKS OF GESTATION (Patient was having 20 minutes of backpain at work. Noticed a spot of blood. FHTs Cat I witout decels and excellent variability. Cx closed and no significant contractions. No evidence of maternal / compromise. No evidence of any bleeding. Pt discharged to [facility] as scheduled and return if any further concerns.)
== END 2018-07-04 12:24 | disposition home or self-care (01) ==
LOC: FBPOP 10:29
PROVIDERS: ATTEND Obstetrics & Gynecology
DX: O47.1 False labor at or after 37 completed weeks of gestation (principal); Z3A.37 37 weeks gestation of pregnancy
CPT/HCPCS: 59025; G0463; 99213

== ENCOUNTER 2018-07-15 05:27 | Inpatient (IN) | payer OTHER ==
--- NOTE | 2018-07-12 12:57 | P.HPOB ---
History of Present Illness H&P Date: 07/12/18 Chief Complaint: Repeat section and tubal ligation This patient is a pleasant 38-year-old 2 para 1 female estimated date of confinement 07/22/2018. Estimated gestational age is 39 weeks. Patient is presenting for repeat section and also requesting permanent sterilization. Patient's care is complicated by advanced for maternal age and she has seen maternal medicine which evaluation shows a marginal cord insertion. Patient declined genetic testing because had a normal level III with the exception of a marginal cord insertion. Patient has been followed with growth ultrasounds and nonstress testing. She's had a previous section as requested repeat plus a tubal. Review of Systems Gastrointestinal: Reports heartburn Genitourinary: Reports Menstruation: Reports amenorrhea Past Medical History Past Medical History: Asthma History of Any Multi-Drug Resistant Organisms: None Reported Past Surgical History: Section Past Anesthesia/Blood Transfusion Reactions: No Reported Reaction Past Psychological History: No Psychological Hx Reported Smoking Status: Never smoker Past Alcohol Use History: None Reported Past Drug Use History: None Reported Medications and Allergies Home Medications Medication Instructions Recorded Confirmed Type Ucc-Fevs-Oeidy Acid 1 cap PO DAILY 12/24/17 05/09/18 History [-U Capsule (formulary)] Allergies Allergy/AdvReac Type Severity Reaction Status Date / Time Kings And Derivatives Allergy Anaphylaxis Verified 07/04/18 10:56 [Kings] peanut Allergy Anaphylaxis Verified 07/04/18 10:56 Exam - OBG Physical Exam Abdomen: bowel sounds normal, no diffuse tenderness, no bruit present, no guarding noted, no hepatomegaly, no splenomegaly, no mass Vulva: both: normal Vagina: normal moisture, no discharge Cervix: no lesion, no discharge Uterus: enlarged (Fundal height is 41 cm) Results blood work shows she is O-, rubella immune, RPR nonreactive, hepatitis B negative, Glucola was normal, she received RhoGAM on May 02, group B strep was positive, ultrasounds of shown normal anatomy with a marginal umbilical cord insertion. Assessment and Plan Assessment: This is a pleasant 38-year-old 2 para 1 female 39 weeks gestation who is admitted to labor and delivery for elective repeat section and also requesting permanent sterilization. Plan is repeat low transverse section and bilateral partial salpingectomy. Patient understands that a tubal ligation is considered permanent although there is a failure rate of approximately 5 or less per thousand procedures done. She understands surgery itself has risks including risks of infection, bleeding, possible injury bowel, bladder, vessels, and/or other organs. She understands risk of DVT and pulmonary embolism. All the patient's questions are answered and a written consent is obtained. (1) 39 weeks gestation of Status: Acute Code(s): Z3A.39 - 39 WEEKS GESTATION OF SNOMED Code(s): 96807968 (2) Previous delivery affecting Status: Acute Code(s): O34.219 - MATERNAL CARE FOR UNSP TYPE SCAR FROM PREVIOUS DEL SNOMED Code(s): 378538317 (3) Family planning Status: Acute Code(s): Z30.09 - ENCOUNTER FOR OT GENERAL CNSL AND ADVICE ON CONTRACEPTION SNOMED Code(s): 487026611 (4) Elderly multigravida in third trimester Status: Acute Code(s): O09.523 - SUPERVISION OF ELDERLY MULTIGRAVIDA, THIRD TRIMESTER SNOMED Code(s): 257168201 (5) Rh negative status during Status: Acute Code(s): O26.899 - OTH RELATED CONDITIONS, UNSPECIFIED TRIMESTER; Z67.91 - UNSPECIFIED BLOOD TYPE, RH NEGATIVE SNOMED Code(s): 520095439 (6) Group B streptococcal carriage complicating Status: Acute Code(s): O99.820 - STREPTOCOCCUS B CARRIER STATE COMPLICATING SNOMED Code(s): 490945121497224 (7) Marginal insertion of umbilical cord Status: Acute Code(s): OJM1486 - SNOMED Code(s): 83294140
[2018-07-12 14:35] VITALS: BMI 46.8
[2018-07-15] MEDS ORDERED: LACTATED RINGERS 1,000 ML IV SCH (05:38)
[2018-07-15] MEDS ORDERED: LACTATED RINGERS 1,000 ML IV ONE (05:38)
[2018-07-15] MEDS ORDERED: CITRIC ACID-SODIUM CITRATE 15 ML CUP PO ONE (05:38)
[2018-07-15 06:26] LABS: Basophils % (A) 0 %; Eosinophils # (A) 0.1 k/uL (0-0.7); Eosinophils % (A) 1 %; HCT 33.6 % (34.0-46.0); HGB 10.5 gm/dL (11.4-16.0); Hypochromasia Marked; Lymphocytes # (A) 1.2 k/uL (1.0-4.8); Lymphocytes % (A) 21 %; MCH 25.2 pg (25.0-35.0); MCHC 31.2 g/dL (31.0-37.0); MCV 80.7 fL (80.0-100.0); Mean Platelet Volume 8.2; Monocytes # (A) 0.3 k/uL (0-1.0); Monocytes % (A) 5 %; Neutrophils # (A) 4.2 k/uL (1.3-7.7); Neutrophils % (A) 70 %; Platelet Count 277 k/uL (150-450); Poikilocytosis Slight; RBC 4.16 m/uL (3.80-5.40); RDW 15.5 % (11.5-15.5); WBC 5.9 k/uL (3.8-10.6)
[2018-07-15] MEDS ORDERED: ceFAZolin IN SWFI 2 GM/20 ML SYRINGE IVP ONE (07:15)
[2018-07-15] MEDS ORDERED: LACTATED RINGERS 1,000 ML BAG IV ONE (07:49)
[2018-07-15] MEDS ORDERED: KETOROLAC 30 MG/ML 1 ML VIAL ONE (07:49)
[2018-07-15] MEDS ORDERED: ONDANSETRON 4 MG/2 ML VIAL ONE (07:49)
[2018-07-15] MEDS ORDERED: NALBUPHINE 10 MG/ML (1 ML AMP) ONE (07:49)
[2018-07-15] MEDS ORDERED: OXYTOCIN 10 UNIT/ML 1 ML VIAL ONE (07:49)
[2018-07-15] MEDS ORDERED: MORPHINE SULFATE (PF) 0.3 MG/0.3 ML SYR ONE (07:49)
[2018-07-15] MEDS ORDERED: ePHEDrine SULFATE/0.9% NACL/PF 50 MG/5 ML SYRINGE IV ONE (07:49)
[2018-07-15] MEDS ORDERED: NALOXONE 0.4 MG/ML 1 ML VIAL IV PRN ×2 (08:41→12:43)
[2018-07-15] MEDS ORDERED: NALBUPHINE 10 MG/ML (1 ML AMP) IV PRN (08:41)
[2018-07-15] MEDS ORDERED: diphenhydrAMINE 50 MG/ML 1 ML VIAL IVP PRN ×2 (08:41→12:43)
--- NOTE | 2018-07-15 08:51 | P.OP ---
Date of Procedure: 07/15/18 Preoperative Diagnosis: #1: 39-0/7 week . #2: Previous section desires repeat #3 multi parity desires permanent sterilization. Postoperative Diagnosis: Same Procedure(s) Performed: Repeat low transverse section and bilateral partial salpingectomy Anesthesia: spinal Surgeon: Oleg Montenegro Strip Polisher #1: Shari Vuong Estimated Blood Loss (ml): 800 Pathology: other (Bilateral fallopian tube segments) Condition: stable Disposition: observation Indications for Procedure: Please see dictated H&P for intimate details of this patient's admission. Brief summary this is a pleasant 38-year-old 2 para 1 female 39-0/7 weeks gestation who is admitted to labor and delivery for elective repeat section and also requesting permanent sterilization. Patient understands a tubal ligation is permanent however there is a failure rate of approximately 5 or less per thousand procedures done. She understands if she does become she is a 50% chance of a tubal or an ectopic . Patient also understands the risks of surgeries including risks of infection, bleeding, possible injury bowel, bladder, vessels, and/or other organs. All the patient's questions are answered and a written consent is obtained. Operative Findings: This is a vigorous viable female infant Apgars 9 and 10 delivery time was 0811 hours. had a hand presentation with oblique. Description of Procedure: This patient has a Israel catheter placed to straight drain. She is subsequently taken to the operating room where she sat up and spinal anesthetic is administered without incident. With an adequate level of anesthesia she has abdominal prep and drape. Scalpels and taken in the previous Pfannenstiel incision is incised. A second scalpel is taken down the fascia the fascia scored with a knife. Fascial incision extended bilaterally using the Hutton scissors. Rectus muscles are the peritoneum was then identified and entered sharply. Peritoneal incision extended superior and inferior without difficulty. Bladder blade is then placed. Bladder peritoneum was then sharply dissected off the lower uterine segment. Scalpels and taken low transverse uterine incision is made. Using a hemostat I into the uterine cavity bluntly and there is loss of clear fluid this incision is extended bluntly. Inspecting the uterus and is found to have a hand presentation and the head is over to the right oblique presentation. Using gentle fundal pressure, after reducing the hand, the head is guided to the incision. It is asynclitic and with fundal pressure is unable to be delivered beyond the uterine incision. This time the vacuum was placed on the 's head and we do not get a seal with the first application a second application excellent seal and the head is easily delivered with gentle traction and fundal pressure. Rest this infant's body was then delivered this is a vigorous viable female Apgars 9 and 10 delivery time was 0811 hours. Infant has spontaneous respiration and good cry and grossly appears normal. After delivery of the the umbilical cord is doubly clamped and cut after cord blood is obtained. Placenta is manually extracted intact. Uterus is then externalized uterine incision demarcated with Oakley clamps. Uterine incision then closed using 0 Vicryl running locked fashion 2 layers. Excellent hemostasis is noted then turned my attention left fallopian tube an approximate 4 cm from the cornual insertion a moment window is made to the mesial salpinx using Bovie cautery using a 2-0 silk I doubly ligate a 2 cm segment of the tube. Cauterization done of the tubal ends Hemostasis is noted. Term HX right fallopian tube using a similar technique I remove a portion of the right fallopian tube. At this time the uterus is attempted to be placed back into the abdomen but it would having difficulty therefore make small extension of the rectus incision. The uterus is gently placed back in the abdomen. I inspected fallopian tubes once again the uterine incision all appears hemostatic. Turning was then identified and closed in 0 Vicryl running fashion. Rectus muscle reapproximate 0 Vicryl interrupted fashion. Fascia is then closed using 0 PDS. Fascial incision is intact and hemostatic. Multiple bleeders in subcutaneous area which were cauterized and hemostasis is achieved. Subcutaneous is then closed using a 3-0 Vicryl usual fashion. Skin is and closed using marquita. All counts are correct 3. There are no complications. and mother stable birthing room.
[2018-07-15] MEDS ORDERED: LANOLIN CREAM 5 GM TUBE TOPICAL PRN (12:43)
[2018-07-15] MEDS ORDERED: KETOROLAC 30 MG/ML 1 ML VIAL IVP PRN (12:43)
[2018-07-15] MEDS ORDERED: METOCLOPRAMIDE 5 MG/ML 2 ML VIAL IVP PRN (12:43)
[2018-07-15] MEDS ORDERED: diphenhydrAMINE 25 MG CAP PO PRN (12:43)
[2018-07-15] MEDS ORDERED: ACETAMINOPHEN TAB 325 MG TAB PO PRN (12:43)
[2018-07-15] MEDS ORDERED: ZOLPIDEM 5 MG TAB PO PRN (12:43)
[2018-07-15] MEDS ORDERED: OXYTOCIN 20 UNITS/1000 ML NS 1,000 ML IV SCH (12:43)
[2018-07-15] MEDS ORDERED: SIMETHICONE 80 MG CHEWABLE PO PRN (12:43)
[2018-07-15] MEDS ORDERED: ONDANSETRON 4 MG/2 ML VIAL IVP PRN (12:43)
[2018-07-15] MEDS: ONDANSETRON 4 MG/2 ML VIAL IVP PRN ×2 (14:15→19:59)
[2018-07-15] MEDS ORDERED: Rhogam IMMUNE GLOBULIN 1,500 UNIT/1 ML IM ONE (14:16)
[2018-07-15] MEDS: KETOROLAC 30 MG/ML 1 ML VIAL IVP PRN ×2 (14:19→20:09)
[2018-07-15] MEDS: SENNOSIDES-DOCUSATE SODIUM 1 EACH TAB PO SCH (21:08)
[2018-07-15] MEDS: LACTATED RINGERS 1,000 ML IV SCH (21:08)
[2018-07-16] MEDS: KETOROLAC 30 MG/ML 1 ML VIAL IVP PRN (05:11)
[2018-07-16] MEDS: LACTATED RINGERS 1,000 ML IV SCH (05:24)
[2018-07-16 05:48] LABS: Basophils % (A) 0 %; Eosinophils # (A) 0.1 k/uL (0-0.7); Eosinophils % (A) 1 %; HCT 29.4 % (34.0-46.0); HGB 9.2 gm/dL (11.4-16.0); Hypochromasia Marked; Lymphocytes # (A) 1.2 k/uL (1.0-4.8); Lymphocytes % (A) 17 %; MCH 25.4 pg (25.0-35.0); MCHC 31.2 g/dL (31.0-37.0); MCV 81.4 fL (80.0-100.0); Monocytes # (A) 0.3 k/uL (0-1.0); Monocytes % (A) 5 %; Neutrophils # (A) 5.3 k/uL (1.3-7.7); Neutrophils % (A) 75 %; Platelet Count 246 k/uL (150-450); Poikilocytosis Slight; RBC 3.61 m/uL (3.80-5.40); RDW 15.6 % (11.5-15.5); WBC 7.1 k/uL (3.8-10.6)
--- NOTE | 2018-07-16 06:08 | P.PNOBGPC ---
Subjective - Subjective Patient reports: Reports appetite normal, Reports voiding normally, Reports pain well controlled, Reports ambulating normally : doing well Objective - Vital Signs Latest vital signs: Vital Signs Temp Pulse Resp BP Pulse Ox 07/16/18 05:00 15 07/16/18 04:00 98 F 60 15 110/70 98 07/16/18 03:00 16 07/16/18 01:00 15 07/16/18 00:00 98 F 62 15 107/69 98 07/15/18 23:00 16 98 07/15/18 21:00 15 07/15/18 20:27 98 07/15/18 20:00 98 F 59 L 15 107/71 07/15/18 19:00 15 98 07/15/18 17:00 17 98 07/15/18 15:00 98.3 F 73 16 103/71 98 07/15/18 13:41 100 07/15/18 12:44 16 07/15/18 11:06 16 100 07/15/18 10:44 96.2 F L 67 18 114/63 100 07/15/18 10:14 96.3 F L 71 18 103/63 100 07/15/18 09:44 97.3 F L 77 18 108/66 100 07/15/18 09:41 18 100 07/15/18 09:29 69 18 128/62 100 07/15/18 09:14 96.2 F L 73 18 142/70 100 07/15/18 08:59 80 18 103/55 07/15/18 08:44 96.7 F L 77 18 107/52 07/15/18 08:41 18 100 Intake and Output 07/15/18 07/15/18 07/16/18 14:59 22:59 06:59 Intake Total 1000 Output Total 200 200 Balance 1000 -200 -200 Intake: Intake, IV Titration 1000 Amount Lactated Ringers 1,000 ml 1000 @ 4000 mls/hr IV .Q15M ONE Rx#:[id number] Output: Urine 200 200 Uretheral (Israel) 200 200 Other: Voiding Method Indwelling Catheter # Voids 300 - Exam Lungs: bilateral: normal Chest: Normal S1, Normal S2 Extremities: Present: normal Abdomen: Present: normal appearance, soft. Absent: distention, tenderness Incision: Present: normal, dry, intact Uterus: Present: normal, firm - Labs Labs: Abnormal Lab Results - Last 24 Hours (Table) 07/15/18 07/16/18 Range/Units 06:01 05:35 RBC 3.61 L (3.80-5.40) m/uL Hgb 10.5 L 9.2 L (11.4-16.0) gm/dL Hct 33.6 L 29.4 L (34.0-46.0) % RDW 15.6 H (11.5-15.5) % Assessment and Plan Assessment: Postoperative day #1. Patient is resting without complaints. She has had some urinary retention but good urine output. Plan today is to check a CBC, encouraged patient ambulate, continue encourage her to try to urinate, all the patient's shower, and advanced to regular diet. (1) 39 weeks gestation of Current Visit: No Status: Acute Code(s): Z3A.39 - 39 WEEKS GESTATION OF SNOMED Code(s): 05282028 (2) Previous delivery affecting Current Visit: No Status: Acute Code(s): O34.219 - MATERNAL CARE FOR UNSP TYPE SCAR FROM PREVIOUS DEL SNOMED Code(s): 381137803 (3) Family planning Current Visit: No Status: Acute Code(s): Z30.09 - ENCOUNTER FOR OT GENERAL CNSL AND ADVICE ON CONTRACEPTION SNOMED Code(s): 244287146 (4) Elderly multigravida in third trimester Current Visit: No Status: Acute Code(s): O09.523 - SUPERVISION OF ELDERLY MULTIGRAVIDA, THIRD TRIMESTER SNOMED Code(s): 036396309 (5) Rh negative status during Current Visit: No Status: Acute Code(s): O26.899 - OTH RELATED CONDITIONS, UNSPECIFIED TRIMESTER; Z67.91 - UNSPECIFIED BLOOD TYPE, RH NEGATIVE SNOMED Code(s): 615636247 (6) Group B streptococcal carriage complicating Current Visit: No Status: Acute Code(s): O99.820 - STREPTOCOCCUS B CARRIER STATE COMPLICATING SNOMED Code(s): 808223389483538 (7) Marginal insertion of umbilical cord Current Visit: No Status: Acute Code(s): [id number] - SNOMED Code(s): 32229453
--- NOTE | 2018-07-16 07:51 | P.PN ---
Progress Note - Text 07/16 732am 38-year-old female status post with spinal Duramorph. Patient seen this morning and she had no pain relief from Duramorph and required Motrin for pain control. Doing better this morning no complains of nausea vomiting or pruritus,
[2018-07-16] MEDS: SENNOSIDES-DOCUSATE SODIUM 1 EACH TAB PO SCH ×2 (12:35→19:54)
[2018-07-16] MEDS: IBUPROFEN 600 MG TAB PO PRN (15:53)
[2018-07-16] MEDS: HYDROcodone/APAP 5-325MG 1 EACH TAB PO PRN (19:54)
[2018-07-17] MEDS: HYDROcodone/APAP 5-325MG 1 EACH TAB PO PRN ×3 (03:38→20:13)
[2018-07-17] MEDS: IBUPROFEN 600 MG TAB PO PRN ×3 (06:14→23:42)
--- NOTE | 2018-07-17 06:31 | P.PNOBGPC ---
Subjective - Subjective Patient reports: Reports appetite normal, Reports voiding normally, Reports pain well controlled, Reports ambulating normally : doing well Objective - Vital Signs Latest vital signs: Vital Signs Temp Pulse Resp BP Pulse Ox 07/17/18 00:00 98.3 F 70 18 98/60 99 07/16/18 18:59 16 98 07/16/18 17:00 16 99 07/16/18 16:00 98.2 F 75 16 101/63 99 07/16/18 15:00 16 07/16/18 13:00 15 98 07/16/18 11:00 15 98 07/16/18 09:00 16 98 07/16/18 08:00 98.2 F 80 18 108/66 100 07/16/18 07:00 16 98 Intake and Output 07/16/18 07/16/18 07/17/18 14:59 22:59 06:59 Output Total 1000 Balance -1000 Output: Urine 1000 Other: # Voids 1 - Exam Lungs: bilateral: normal Chest: Normal S1, Normal S2 Extremities: Present: normal Abdomen: Present: normal appearance, soft. Absent: distention, tenderness Incision: Present: normal, dry, intact Uterus: Present: normal, firm Assessment and Plan Assessment: Postoperative day #2. Patient is resting without complaints. Vital signs are stable she is afebrile. Uterus is firm nontender and her incision is intact and dry. CBC yesterday was normal. Patient is ambulating and urinating without difficulty and tolerating regular diet. Plan today is to continue routine postoperative care. Most likely discharge home tomorrow. (1) 39 weeks gestation of Current Visit: No Status: Acute Code(s): Z3A.39 - 39 WEEKS GESTATION OF SNOMED Code(s): 80154832 (2) Previous delivery affecting Current Visit: No Status: Acute Code(s): O34.219 - MATERNAL CARE FOR UNSP TYPE SCAR FROM PREVIOUS DEL SNOMED Code(s): 475182179 (3) Family planning Current Visit: No Status: Acute Code(s): Z30.09 - ENCOUNTER FOR OTH GENERAL CNSL AND ADVICE ON CONTRACEPTION SNOMED Code(s): 042338965 (4) Elderly multigravida in third trimester Current Visit: No Status: Acute Code(s): O09.523 - SUPERVISION OF ELDERLY MULTIGRAVIDA, THIRD TRIMESTER SNOMED Code(s): 056417992 (5) Rh negative status during Current Visit: No Status: Acute Code(s): O26.899 - OTH RELATED CONDITIONS, UNSPECIFIED TRIMESTER; Z67.91 - UNSPECIFIED BLOOD TYPE, RH NEGATIVE SNOMED Code(s): 589690246 (6) Group B streptococcal carriage complicating Current Visit: No Status: Acute Code(s): O99.820 - STREPTOCOCCUS B CARRIER STATE COMPLICATING SNOMED Code(s): 687701755118786 (7) Marginal insertion of umbilical cord Current Visit: No Status: Acute Code(s): [id number] - SNOMED Code(s): 83436758
[2018-07-17] MEDS: IRON AG/C/B12/CA/SUC.ACID/STOM 1 EACH TAB PO SCH (07:40)
[2018-07-17] MEDS: SENNOSIDES-DOCUSATE SODIUM 1 EACH TAB PO SCH ×2 (07:40→20:50)
[2018-07-17 07:43] VITALS: RESP 16
[2018-07-17] MEDS: LACTATED RINGERS 1,000 ML IV SCH ×4 (20:48→20:51)
--- NOTE | 2018-07-18 06:35 | P.PNOBGPC ---
Subjective - Subjective Patient reports: Reports appetite normal, Reports voiding normally, Reports pain well controlled, Reports ambulating normally : doing well Objective - Vital Signs Latest vital signs: Vital Signs Temp Pulse Resp BP Pulse Ox 07/17/18 23:44 98.0 F 80 16 99/50 98 07/17/18 16:00 98.1 F 80 16 116/75 07/17/18 07:41 97.5 F L 73 16 117/74 - Exam Lungs: bilateral: normal Chest: Normal S1, Normal S2 Extremities: Present: normal Abdomen: Present: normal appearance, soft. Absent: distention, tenderness Incision: Present: normal, dry, intact Uterus: Present: normal, firm Assessment and Plan Assessment: Post operative day #3. Patient is resting without new complaints. Vital signs are stable she is afebrile. Uterus is firm nontender and her incision is intact and dry. My impression is a normal course. Plan is to continue routine postoperative care and discharge home later today. (1) 39 weeks gestation of Current Visit: No Status: Acute Code(s): Z3A.39 - 39 WEEKS GESTATION OF SNOMED Code(s): 04225307 (2) Previous delivery affecting Current Visit: No Status: Acute Code(s): O34.219 - MATERNAL CARE FOR UNSP TYPE SCAR FROM PREVIOUS DEL SNOMED Code(s): 917533490 (3) Family planning Current Visit: No Status: Acute Code(s): Z30.09 - ENCOUNTER FOR OTH GENERAL CNSL AND ADVICE ON CONTRACEPTION SNOMED Code(s): 252097830 (4) Elderly multigravida in third trimester Current Visit: No Status: Acute Code(s): O09.523 - SUPERVISION OF ELDERLY MULTIGRAVIDA, THIRD TRIMESTER SNOMED Code(s): 437078261 (5) Rh negative status during Current Visit: No Status: Acute Code(s): O26.899 - OTH RELATED CONDITIONS, UNSPECIFIED TRIMESTER; Z67.91 - UNSPECIFIED BLOOD TYPE, RH NEGATIVE SNOMED Code(s): 208731813 (6) Group B streptococcal carriage complicating Current Visit: No Status: Acute Code(s): O99.820 - STREPTOCOCCUS B CARRIER STATE COMPLICATING SNOMED Code(s): 299917549835585 (7) Marginal insertion of umbilical cord Current Visit: No Status: Acute Code(s): RHP9664 - SNOMED Code(s): 58547536
--- NOTE | 2018-07-18 06:43 | P.DS ---
Providers Date of admission: 07/15/18 05:27 Expected date of discharge: 07/18/18 Attending physician: Oleg Montenegro Primary care physician: Stated None - Discharge Diagnosis(es) (1) 39 weeks gestation of Current Visit: No Status: Acute (2) Previous delivery affecting Current Visit: No Status: Acute (3) Family planning Current Visit: No Status: Acute (4) Elderly multigravida in third trimester Current Visit: No Status: Acute (5) Rh negative status during Current Visit: No Status: Acute (6) Group B streptococcal carriage complicating Current Visit: No Status: Acute (7) Marginal insertion of umbilical cord Current Visit: No Status: Acute Hospital Course: Please see dictated H&P for intimate details of this patient's admission. Brief summary is a pleasant 38-year-old 2 para 1 female 39 weeks gestation admitted to labor and delivery for elective repeat section and per manent sterilization. Patient is admitted undergoes above-named surgeries. Please see dictated operative note. Postoperative day #3 patient's felt be stable for discharge home follow up with me in 1 week for an incision check. Procedures: Repeat low transverse section and bilateral partial salpingectomy Patient Condition at Discharge: Good Plan - Discharge Summary Discharge Rx Participant: Yes New Discharge Prescriptions: New Ibuprofen [Motrin] 600 mg PO Q6HR PRN #40 tab PRN Reason: Mild Pain Or Fever >= 100.5 HYDROcodone/APAP 5-325MG [[place] 5-325] 1 - 2 each PO Q4HR PRN #36 tab PRN Reason: Moderate Pain Discharge Medication List HYDROcodone/APAP 5-325MG [[place] 5-325] 1 - 2 each PO Q4HR PRN #36 tab 07/18/18 [Rx] Ibuprofen [Motrin] 600 mg PO Q6HR PRN #40 tab 07/18/18 [Rx] Follow up Appointment(s)/Referral(s): Oleg Montenegro MD [STAFF PHYSICIAN] - 07/26/18 1:30 pm (Please see me on August 29 at 11:15 for a visit as well.) Patient Instructions/Handouts: (DC) Activity/Diet/Wound Care/Special Instructions: No heavy lifting or strenuous activity for 6 weeks. No intercourse or anything per vagina for 6 weeks. Please call if any fever, chills, excessive vaginal bleeding, and/or abdominal pain. Discharge Disposition: HOME SELF-CARE
[2018-07-18] MEDS: IRON AG/C/B12/CA/SUC.ACID/STOM 1 EACH TAB PO SCH (08:34)
[2018-07-18] MEDS: SENNOSIDES-DOCUSATE SODIUM 1 EACH TAB PO SCH (10:19)
[2018-07-18] MEDS: HYDROcodone/APAP 5-325MG 1 EACH TAB PO PRN (14:26)
[2018-07-18 16:22] VITALS: BP 125/68; PULSE 85; TEMP 98
== END 2018-07-18 17:00 | disposition home or self-care (01) | DRG 785 ==
LOC: 4FBP 05:27
PROVIDERS: ADMIT Obstetrics & Gynecology; ATTEND Obstetrics & Gynecology
PROC: 0UB70ZZ Excision of Bilateral Fallopian Tubes, Open Approach (ICD-10-PCS; principal; 2018-07-15 08:00)
PROC: 10D00Z1 Extraction of Products of Conception, Low, Open Approach (ICD-10-PCS; principal; 2018-07-15 08:00)
PROC: 10D07Z6 Extraction of Products of Conception, Vacuum, Via Natural or Artificial Opening (ICD-10-PCS; principal; 2018-07-15 08:00)
DX: O34.211 Maternal care for low transverse scar from previous cesarean delivery (principal); O99.824 Streptococcus B carrier state complicating childbirth; Z37.0 Single live birth; Z3A.39 39 weeks gestation of pregnancy; Z67.91 Unspecified blood type, Rh negative; Z30.2 Encounter for sterilization; O43.193 Other malformation of placenta, third trimester; Z91.010 Allergy to peanuts; Z91.018 Allergy to other foods; O32.2XX0 Maternal care for transverse and oblique lie, not applicable or unspecified
CPT/HCPCS: 85025; 85461; 86850; 86870; 86880; 86900; 86901; 88302; 94760

== ENCOUNTER 2020-08-05 15:30 | Emergency (ER) | payer BC, OTHER ==
[2020-08-05 15:42] VITALS: BP 117/77; PULSE 109; RESP 18; TEMP 98.6
[2020-08-05] MEDS ORDERED: SODIUM CHLORIDE 0.9% 500 ML 500 ML IV STA (17:02)
[2020-08-05] MEDS ORDERED: SODIUM CHLORIDE 0.9% 1,000 ML IV STA (17:02)
[2020-08-05] MEDS ORDERED: DICYCLOMINE 10 MG/ML 2 ML AMP IM STA (17:02)
[2020-08-05] MEDS ORDERED: ONDANSETRON 4 MG/2 ML VIAL IVP STA (17:02)
[2020-08-05 17:30] LABS: Basophils % (A) 0 %; Eosinophils # (A) 0.1 k/uL (0-0.7); Eosinophils % (A) 1 %; HCT 37.5 % (34.0-46.0); HGB 12.4 gm/dL (11.4-16.0); Lymphocytes # (A) 0.8 k/uL (1.0-4.8); Lymphocytes % (A) 9 %; MCH 27.4 pg (25.0-35.0); MCHC 33.1 g/dL (31.0-37.0); MCV 82.7 fL (80.0-100.0); Mean Platelet Volume 7.4; Monocytes # (A) 0.2 k/uL (0-1.0); Monocytes % (A) 2 %; Neutrophils # (A) 7.3 k/uL (1.3-7.7); Neutrophils % (A) 86 %; Platelet Count 289 k/uL (150-450); RBC 4.54 m/uL (3.80-5.40); RDW 15.2 % (11.5-15.5); WBC 8.4 k/uL (3.8-10.6)
--- NOTE | 2020-08-05 17:37 | ED ---
Nausea/Vomiting/Diarrhea HPI - General Chief complaint: Nausea/Vomiting/Diarrhea Stated complaint: N/VD Time Seen by Provider: 08/05/20 15:50 Source: patient Mode of arrival: ambulatory Limitations: no limitations - History of Present Illness Initial comments: 40 year-old female patient presents to the emergency department for evaluation of vomiting, diarrhea, and abdominal pain. States symptoms started last night. States she is unable to keep down any food or fluid. States she feels weak. States that she is having some generalized abdominal pain but is worse on the right side. States it feels better when she lays on her left side. Denies any fever but states she has been chilled. Denies taking any medication for her symptoms. States 2 of her children were sick with similar symptoms over the last couple of days. She has had dissection in the past but no other abdominal surgeries. Denies any hematochezia, melena, hematemesis. Patient denies any recent rash, cough, shortness of breath, chest pain, back pain, numbness, tingling, dizziness, weakness, hematuria, dysuria, urinary urgency, urinary frequency, headache, visual changes, or any other complaints. - Related Data Home Medications Medication Instructions Recorded Confirmed No Known Home Medications 08/05/20 08/05/20 Allergies Allergy/AdvReac Type Severity Reaction Status Date / Time [place] And Derivatives Allergy Anaphylaxis Verified 08/05/20 16:44 [[place]] peanut Allergy Anaphylaxis Verified 08/05/20 16:44 Review of Systems ROS Statement: Those systems with pertinent positive or pertinent negative responses have been documented in the HPI. ROS Other: All systems not noted in ROS Statement are negative. Past Medical History Past Medical History: Asthma History of Any Multi-Drug Resistant Organisms: None Reported Past Surgical History: Section Past Anesthesia/Blood Transfusion Reactions: No Reported Reaction Past Psychological History: No Psychological Hx Reported Smoking Status: Never smoker Past Alcohol Use History: None Reported Past Drug Use History: None Reported - Past Family History Father Family Medical History: Deep Vein Thrombosis (DVT) General Exam Limitations: no limitations General appearance: alert, in no apparent distress, other (Physical well- developed, well-nourished adult female patient in no acute distress. Vital signs upon presentation are temperature 98.6F, pulse 109, respirations 18, blood pressure 117/77, pulse ox 100% on room air.) Eye exam: Present: normal appearance, PERRL, EOMI. Absent: scleral icterus, conjunctival injection, periorbital swelling ENT exam: Present: normal exam, normal oropharynx, mucous membranes moist Respiratory exam: Present: normal lung sounds bilaterally. Absent: respiratory distress, wheezes, rales, rhonchi, stridor Cardiovascular Exam: Present: regular rate, normal rhythm, normal heart sounds. Absent: systolic murmur, diastolic murmur, rubs, gallop, clicks GI/Abdominal exam: Present: soft, tenderness (Generalized), normal bowel sounds. Absent: distended, guarding, rebound, rigid Neurological exam: Present: alert, oriented X3, CN II-XII intact Psychiatric exam: Present: normal affect, normal mood Skin exam: Present: warm, dry, intact, normal color. Absent: rash Course Vital Signs 08/05/20 15:39 Temperature 98.6 F Pulse Rate 109 H Respiratory 18 Rate Blood Pressure 117/77 O2 Sat by Pulse 100 Oximetry Medical Decision Making - Medical Decision Making 40-year-old female patient presents to the emergency department today for evaluation of abdominal pain, nausea, vomiting. Symptoms present since last evening. She did have 2 children sick with similar symptoms over the last couple of days. Physical examination did reveal some mild generalized tenderness. Labs reviewed and were unremarkable. She was given IV fluids, nausea medication, Bentyl. Upon reevaluation states that she does have improvement in symptoms though she is ready to be discharged. She will discharge. The primary care physician for recheck in 1-2 days. Return parameters were discussed in detail. She verbalizes understanding and agrees with this plan. Case discussed with my attending Dr. Reese. - Lab Data Result diagrams: 08/05/20 17:07 08/05/20 17:07 Lab Results 08/05/20 08/05/20 08/05/20 Range/Units 17:07 17:07 19:12 WBC 8.4 (3.8-10.6) k/uL RBC 4.54 (3.80-5.40) m/uL Hgb 12.4 (11.4-16.0) gm/dL Hct 37.5 (34.0-46.0) % MCV 82.7 (80.0-100.0) fL MCH 27.4 (25.0-35.0) pg MCHC 33.1 (31.0-37.0) g/dL RDW 15.2 (11.5-15.5) % Plt Count 289 (150-450) k/uL MPV 7.4 Neutrophils % 86 % Lymphocytes % 9 % Monocytes % 2 % Eosinophils % 1 % Basophils % 0 % Neutrophils # 7.3 (1.3-7.7) k/uL Lymphocytes # 0.8 L (1.0-4.8) k/uL Monocytes # 0.2 (0-1.0) k/uL Eosinophils # 0.1 (0-0.7) k/uL Basophils # 0.0 (0-0.2) k/uL Sodium 135 L (137-145) mmol/L Potassium 4.2 (3.5-5.1) mmol/L Chloride 102 (98-107) mmol/L Carbon Dioxide 24 (22-30) mmol/L Anion Gap 9 mmol/L BUN 13 (7-17) mg/dL Creatinine 0.84 (0.52-1.04) mg/dL Est GFR (CKD-EPI)AfAm >90 (>60 ml/min/1.73 sqM) Est GFR (CKD-EPI)NonAf 87 (>60 ml/min/1.73 sqM) Glucose 100 H (74-99) mg/dL Calcium 9.2 (8.4-10.2) mg/dL Total Bilirubin 0.7 (0.2-1.3) mg/dL AST 23 (14-36) U/L ALT 18 (4-34) U/L Alkaline Phosphatase 66 (38-126) U/L Total Protein 7.9 (6.3-8.2) g/dL Albumin 4.3 (3.5-5.0) g/dL Lipase 53 (23-300) U/L Coronavirus (PCR) Not Detected (Not Detectd) Disposition Clinical Impression: Vomiting and diarrhea Disposition: HOME SELF-CARE Condition: Good Instructions (If sedation given, give patient instructions): Acute Nausea and Vomiting (ED), Acute Diarrhea (ED) Additional Instructions: Start with clear liquid diet and advance as tolerated. Follow-up with her primary care physician for recheck in 1-2 days. Return to the emergency dep artment for any new, worsening, or concerning symptoms. Is patient prescribed a controlled substance at d/c from ED?: No Referrals: None,Stated [Primary Care Provider] - 1-2 days Time of Disposition: 19:02
[2020-08-05 17:41] LABS: ALT 18 U/L (4-34); AST 23 U/L (14-36); African American GFR (CKD) >90 (>60 ml/min/1.73 sqM); Albumin 4.3 g/dL (3.5-5.0); Alkaline Phosphatase 66 U/L (38-126); Anion Gap 9 mmol/L; Blood Urea Nitrogen 13 mg/dL (7-17); Calcium 9.2 mg/dL (8.4-10.2); Carbon Dioxide 24 mmol/L (22-30); Chloride 102 mmol/L (98-107); Glucose 100 mg/dL (74-99); Lipase 53 U/L (23-300); Non-African American GFR(CKD) 87 (>60 ml/min/1.73 sqM); Potassium 4.2 mmol/L (3.5-5.1); Sodium 135 mmol/L (137-145); Total Bilirubin 0.7 mg/dL (0.2-1.3); Total Protein 7.9 g/dL (6.3-8.2)
[2020-08-05] MEDS ORDERED: ONDANSETRON 4 MG ODT STARTER PACK 2 TAB BTL PO STA (19:02)
== END 2020-08-05 19:13 | disposition home or self-care (01) ==
LOC: EC 15:30
DX: R11.10 Vomiting, unspecified (principal); R19.7 Diarrhea, unspecified; Z20.822 Contact with and (suspected) exposure to COVID-19; J45.909 Unspecified asthma, uncomplicated
CPT/HCPCS: 80053; 83690; 85025; 87635; 99284; 96374; 96372; J0500; J2405; S0119; 36415

== ENCOUNTER → 2021-09-13 | Outpatient (CLI) | payer BC ==
[2021-09-13 14:26] LABS: Basophils # (A) 0.01 X 10*3/uL (0.00-0.10); Basophils % (A) 0.2 %; Eosinophils # (A) 0.17 X 10*3/uL (0.04-0.35); Eosinophils % (A) 3.2 %; HCT 34.1 % (37.2-46.3); HGB 10.2 g/dL (12.0-15.0); Immature Grans, Automated 0.2 %; Lymphocytes # (A) 1.78 X 10*3/uL (0.90-5.00); Lymphocytes % (A) 33.1 %; MCH 25.9 pg (27.0-32.0); MCHC 29.9 g/dL (32.0-37.0); MCV 86.5 fL (80.0-97.0); Mean Platelet Volume 11.2 fL (9.5-12.2); Monocytes % (A) 9.3 %; NRBC Per 100 WBC 0 /100 WBCS (0.0-0.0); Platelet Count 329 X 10*3/uL (140-440); RBC 3.94 X 10*6/uL (4.10-5.20); RDW 15.3 % (11.5-14.5); WBC 5.37 X 10*3/uL (4.50-10.00)
[2021-09-13 14:36] LABS: Rheumatoid Factor, Qnt <10 IU/mL (0-15); Uric Acid 4.8 mg/dL (2.9-7.7)
[2021-09-13 15:32] LABS: Erythrocyte Sedimentation Rate 29 mm/Hr (0-20)
[2021-09-14 11:31] LABS: HLA B27 NEGATIVE
== END | disposition home or self-care (01) ==
LOC: LABWHC1 08:42
PROVIDERS: ATTEND Orthopaedic Surgery
DX: M25.561 Pain in right knee (principal)
CPT/HCPCS: 36415; 84550; 85025; 85652; 86038; 86140; 86431; 86812

== ENCOUNTER → 2021-09-26 | Outpatient (CLI) | payer BC ==
--- NOTE | 2021-09-27 05:16 | MR ---
EXAMINATION TYPE: MR knee RT wo con DATE OF EXAM: 09/26/2021 COMPARISON: None HISTORY: Right knee pain x 1 year. Multiplanar multiecho imaging of the right knee with no contrast. The anterior and posterior cruciate ligaments are intact. There is mild knee joint effusion. There is a 3 cm area of increased signal on the proton density images involving medial femoral condyle and co nsistent with a large bone bruise. There is subcutaneous edema around the knee. There is moderate jaja rowing of the medial joint space. No fracture seen. The collateral ligaments appear intact. The lateral meniscus appears intact. There is thinning of the medial meniscus. No definite meniscal t ear. The patella is intact. 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 There is edema in the medial femoral cond yle consistent with a bone bruise. No meniscal tear. There is degenerative thinning and reveal displa cement of the medial meniscus. No evidence of ligamentous tear. Small joint effusion. Subcutaneous edema around the knee.
== END | disposition home or self-care (01) ==
LOC: RADMRIMAIN 18:45
PROVIDERS: ATTEND Orthopaedic Surgery
DX: M25.561 Pain in right knee (principal)

== ENCOUNTER → 2021-10-14 | Outpatient (CLI) | payer BC ==
[2021-10-14 14:03] LABS: Basophils # (A) 0.02 X 10*3/uL (0.00-0.10); Basophils % (A) 0.3 %; Eosinophils # (A) 0.21 X 10*3/uL (0.04-0.35); Eosinophils % (A) 3.6 %; HGB 10.4 g/dL (12.0-15.0); Immature Grans, Automated 0.2 %; Lymphocytes # (A) 1.85 X 10*3/uL (0.90-5.00); Lymphocytes % (A) 32.1 %; MCH 25.9 pg (27.0-32.0); MCHC 30.6 g/dL (32.0-37.0); MCV 84.6 fL (80.0-97.0); Mean Platelet Volume 11.5 fL (9.5-12.2); Monocytes # (A) 0.41 X 10*3/uL (0.20-1.00); Monocytes % (A) 7.1 %; NRBC Per 100 WBC 0 /100 WBCS (0.0-0.0); Neutrophils # (A) 3.26 X 10*3/uL (1.80-7.70); Neutrophils % (A) 56.7 %; Platelet Count 314 X 10*3/uL (140-440); RBC 4.02 X 10*6/uL (4.10-5.20); RDW 15.4 % (11.5-14.5); WBC 5.76 X 10*3/uL (4.50-10.00)
[2021-10-14 14:15] LABS: Anion Gap 7.9 mmol/L (10.00-18.00); Carbon Dioxide 26.5 mmol/L (20.0-27.5); Potassium 4.4 mmol/L (3.5-5.5)
== END | disposition home or self-care (01) ==
LOC: LABPAT 08:14
PROVIDERS: ATTEND Orthopaedic Surgery
DX: Z01.812 Encounter for preprocedural laboratory examination (principal); M23.91 Unspecified internal derangement of right knee
CPT/HCPCS: 80051; 85025

== ENCOUNTER 2021-10-21 09:43 | Day surgery (SDC) | payer BC ==
--- NOTE | 2021-10-15 17:48 | P.HPOR ---
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 She notes intermittent locking and buckling. She has swelling and stiffness. She has pain at night. She has a difficult time with normal ambulation. She's tried medications in addition to a previous injection without much relief. Review of Systems As per HPI Past Medical History Past Medical History: Asthma History of Any Multi-Drug Resistant Organisms: None Reported Past Surgical History: Section Past Anesthesia/Blood Transfusion Reactions: No Reported Reaction Past Psychological History: No Psychological Hx Reported Smoking Status: Never smoker Past Alcohol Use History: None Reported Past Drug Use History: None Reported - Past Family History Father Family Medical History: Deep Vein Thrombosis (DVT) Medications and Allergies Home Medications Medication Instructions Recorded Confirmed Type No Known Home Medications 08/05/20 08/05/20 History Allergies Allergy/AdvReac Type Severity Reaction Status Date / Time [place] And Derivatives Allergy Anaphylaxis Verified 08/05/20 16:44 [[place]] peanut Allergy Anaphylaxis Verified 08/05/20 16:44 Physical Examination - Knee right Appearance: effusion Effusion grade: grade 2 Tenderness with palpation: medial Gait: limping ROM: extension: -10 degrees ROM: flexion: 70 degrees ACL tests: anterior drawer: grade 3 Meniscal tests: medial meniscal tests: positive Results Right knee stable to varus and valgus stress at 0 and 30 of flexion. Laura negative, pivot shift negative. Duke's elicits medial pain. Distal neurovascular exam intact right lower extremity. - Diagnostic results Knee MRI: image reviewed (Right knee posterior medial meniscal tear, edema in the medial femoral condyle) Assessment and Plan Assessment: Right knee internal derangement/medial meniscal tear/possible avascular necrosis medial femoral condyle Plan: I talked to the patient regarding her condition, treatment options. This point she is quite symptomatic having pain and mechanical symptoms despite previous conservative measures. After thorough discussion she has proceed with surgery. We will plan to proceed with arthroscopic evaluation with probable partial medial meniscectomy. We will likely perform as an outpatient procedure. Risks and benefits were discussed at length in layman's terms. Time with Patient: Greater than 30
[~2021-10-21 09:43] MED LIST: DEXAMETHASONE SOD PHOSPHATE 4 MG/ML 1 ML VIAL IV ONE; HYDROmorphone 0.5 MG/0.5 ML SYRINGE IVP PRN; LACTATED RINGERS 1,000 ML IV SCH; LIDOCAINE 1% (10MG/ML) FOR IV START INTRADERMA PRN; MIDAZOLAM 2 MG/2 ML VIAL IV PRN
[2021-10-21] MEDS ORDERED: LACTATED RINGERS 1,000 ML IV ONE (10:00)
[2021-10-21] MEDS: ONDANSETRON 4 MG/2 ML VIAL IVP ONE ×2 (10:10→14:29)
[2021-10-21] MEDS ORDERED: PROPOFOL 10 MG/ML 20 ML VIAL IV ONE (11:05)
[2021-10-21] MEDS ORDERED: SUCCINYLCHOLINE CHLORIDE 200 MG/10 ML VIAL IV ONE (11:05)
[2021-10-21] MEDS ORDERED: fentaNYL (PF) 50 MCG/ML 2 ML AMP ONE (11:05)
[2021-10-21] MEDS ORDERED: MIDAZOLAM 2 MG/2 ML VIAL ONE (11:05)
[2021-10-21] MEDS ORDERED: LIDOCAINE 2% INJ 20 MG/ML (2 ML VIAL) ONE (11:05)
[2021-10-21] MEDS ORDERED: HYDROmorphone (PF) 1 MG/ML ONE (11:05)
[2021-10-21] MEDS ORDERED: KETOROLAC 15 MG/ML 1 ML VIAL ONE (11:05)
--- NOTE | 2021-10-21 11:56 | P.OP ---
Date of Procedure: 10/21/21 Preoperative Diagnosis: Right knee internal derangement Postoperative Diagnosis: Right knee posterior medial meniscal tear/grade 3 chondral injury distal medial portion medial femoral condyle Procedure(s) Performed: Right knee arthroscopic partial medial meniscectomy/medial femoral chondrectomy Anesthesia: AMY Surgeon: Prasanth Sanders Estimated Blood Loss (ml): 10 Pathology: none sent Condition: stable Disposition: PACU Indications for Procedure: The patient's a 41-year-old female presents with progressive right knee pain and mechanical symptoms despite conservative measures. A discussion of the risks and benefits of operative intervention versus continued conservative measures was made with patient. She opted to proceed with surgery. Operative risks to include infection, neurovascular injury, development of blood clots, possible incomplete resolution of symptoms, possible worsening symptoms and need for subsequent procedures was discussed. Informed consent was obtained. Operative Findings: As below Description of Procedure: The patient was brought to the operating room, and after induction of general anesthesia examined the right knee. Collaterals were stable, Laura was negative, and posterior drawer was negative. The right lower extremity was prepped and draped in a normal fashion. A superior lateral portal was made through a 3 mm skin incision superior and lateral to the patella. This was used for outflow. A lateral portal was made through a 5 mm vertical skin incision lateral to the patella tendon above the joint line. Diagnostic arthroscopy was performed. On inspection of the medial compartment, a longitudinal tear involving the posterior horn medial meniscus in the white-white junction was noted. This was debrided back to stable base with straight baskets and a motorized shaver. A flap tear involving the anterior horn medial meniscus in the white-red junction was noted. This was debrided back to stable base with a motorized shaver. A grade 3 chondral injury involving the medial aspect the medial femoral condyle was noted. There was a loose chondral flap debrided back to stable base with a motorized shaver. On inspection of the notch, the anterior cruciate ligament appeared to be intact. On inspection of the lateral compartment, no significant meniscal or cartilage pathology was noted. On inspection of the patellofemoral articulation, there grade 2-3 chondral changes diffusely however no loose chondral fragments. The gutters were clear debris. The knee was then thoroughly irrigated. The portals were closed with Steri- Strips. A sterile dressing was applied in addition to a compression stocking. The patient was awoken from general anesthesia and transferred to recovery room in good condition. Blood loss was estimated at 10 mL. No complications were incurred.
[2021-10-21 12:02] VITALS: RESP 16; TEMP 97.5
[2021-10-21] MEDS ORDERED: MEPERIDINE 50 MG/ML SYRINGE IVP ONE (14:18)
[2021-10-21] MEDS ORDERED: ONDANSETRON 4 MG/2 ML VIAL ONE (14:24)
[2021-10-21 15:10] VITALS: PULSE 62
[2021-10-21 15:55] VITALS: BP 116/72
== END 2021-10-21 16:04 | disposition home or self-care (01) ==
LOC: OR 09:43
PROVIDERS: ATTEND Orthopaedic Surgery
DX: M23.203 Derangement of unspecified medial meniscus due to old tear or injury, right knee (principal); J45.909 Unspecified asthma, uncomplicated; Z98.891 History of uterine scar from previous surgery; Z82.49 Family history of ischemic heart disease and other diseases of the circulatory system; Z91.010 Allergy to peanuts; Z91.018 Allergy to other foods
CPT/HCPCS: 81025; 29881; J2250; J0330; J1100; J2175; J0690; J2405; J3010; J1170 ×2; J1885; J2704; J2001

== ENCOUNTER 2023-06-06 13:19 | Emergency (ER) | payer BC ==
[2023-06-06 14:19] LABS: Basophils % (A) 0 %; Eosinophils # (A) 0.1 k/uL (0-0.7); Eosinophils % (A) 2 %; HCT 36.1 % (34.0-46.0); HGB 11.5 gm/dL (11.4-16.0); Hypochromasia Slight; Lymphocytes # (A) 0.8 k/uL (1.0-4.8); Lymphocytes % (A) 12 %; MCH 26.9 pg (25.0-35.0); MCHC 31.9 g/dL (31.0-37.0); MCV 84.5 fL (80.0-100.0); Mean Platelet Volume 7.8; Monocytes # (A) 0.2 k/uL (0-1.0); Monocytes % (A) 2 %; Neutrophils # (A) 5.7 k/uL (1.3-7.7); Neutrophils % (A) 83 %; Platelet Count 254 k/uL (150-450); RBC 4.27 m/uL (3.80-5.40); RDW 15.5 % (11.5-15.5); WBC 6.9 k/uL (3.8-10.6)
--- NOTE | 2023-06-06 14:26 | XR ---
EXAMINATION TYPE: XR chest 2V DATE OF EXAM: 06/06/2023 COMPARISON: 09/28/2017 INDICATION: Chest pain TECHNIQUE: Frontal and lateral views of the chest are obtained. FINDINGS: The heart size is enlarged. The pulmonary vasculature is normal. The lungs are clear. IMPRESSION: 1. Very minimally. 2. No acute pulmonary process.
--- NOTE | 2023-06-06 14:46 | ED ---
Chest Pain HPI - General Source: patient, RN notes reviewed Mode of arrival: ambulatory Limitations: no limitations <Araceli Chua - Last Filed: 06/06/23 14:45> - History of Present Illness MD Complaint: chest pain Onset/Timin -: days(s) Onset: other Pain Location: substernal Severity: moderate Quality: aching Consistency: constant Improves With: nothing Worsens With: palpation, other (Coughing) Other Symptoms: cough, syncope Treatments Prior to Arrival: none <Adolfo Ascencio - Last Filed: 06/09/23 07:58> - General Chief Complaint: Chest Pain Stated Complaint: chest pain syncope Time Seen by Provider: 06/06/23 14:45 - History of Present Illness Initial Comments: Quick note: Patient is a 43-year-old female presenting to the ER with a chief complaint of syncope. Patient states she started to feel dizzy at work and fell. She states she woke up to maintenance around her. She also was endorsing shortness of breath and a tightness sensation in her chest. No known cardiac history. Denies head injury. (Araceli Chua) This patient is 43-year-old woman who states that she has not been feeling well for a couple of days. She has had a little bit of cough. She states she went to work today and was feeling lightheaded and dizzy. She states that at 1 point she got up, felt very faint and probably did pass out. She states that [employer] helped her get to a seat, and when they got her up she again felt like she was going to pass out. Patient denies having any sensation of injury. She does have some sternal chest pain but thinks that this may be related to the coughing that she has been doing. Cough is nonproductive. (Adolfo Ascencio) - Related Data Home Medications Medication Instructions Recorded Confirmed Albuterol Inhaler [Ventolin Hfa 2 puff INHALATION RT-Q4H PRN 10/19/21 06/06/23 Inhaler] Nystatin 100,000 Unit/ml Susp 6 ml PO QID 06/06/23 06/06/23 [Mycostatin Oral Susp] Previous Rx's Medication Instructions Recorded Albuterol Inhaler [Ventolin Hfa 2 puff INHALATION Q4HR PRN #8 gm 06/06/23 Inhaler] predniSONE [Deltasone] 20 mg PO BID #8 tab 06/06/23 Allergies Allergy/AdvReac Type Severity Reaction Status Date / Time [place] And Derivatives Allergy Anaphylaxis Verified 06/06/23 16:31 [[place]] peanut Allergy Anaphylaxis Verified 06/06/23 16:31 Review of Systems ROS Other: All systems not noted in ROS Statement are negative. <Araceli Chua - Last Filed: 06/06/23 14:45> ROS Other: All systems not noted in ROS Statement are negative. Constitutional: Reports: fever, weakness. Denies: chills ENT: Reports: congestion Respiratory: Reports: cough. Denies: dyspnea Cardiovascular: Reports: chest pain, syncope. Denies: palpitations, orthopnea, edema Gastrointestinal: Denies: abdominal pain, vomiting, diarrhea Genitourinary: Denies: dysuria, hematuria Musculoskeletal: Denies: back pain Skin: Denies: rash Neurological: Denies: headache, weakness, numbness <Adolfo Ascencio - Last Filed: 06/09/23 07:58> ROS Statement: Those systems with pertinent positive or pertinent negative responses have been documented in the HPI. EKG Findings - EKG Results: EKG: interpreted by ERMD, sinus rhythm (Rate 85 bpm), normal axis, normal QRS, normal ST/T, no acute changes <SonuAdolfo - Last Filed: 06/09/23 07:58> Past Medical History Past Medical History: Asthma, Musculoskeletal Disorder, Osteoarthritis (OA) Additional Past Medical History / Comment(s): hx. anemia History of Any Multi-Drug Resistant Organisms: None Reported Past Surgical History: Section, Tubal Ligation Additional Past Surgical History / Comment(s): C/S x2 Past Anesthesia/Blood Transfusion Reactions: No Reported Reaction Past Psychological History: No Psychological Hx Reported Smoking Status: Never smoker Past Alcohol Use History: None Reported Past Drug Use History: None Reported - Past Family History Father Family Medical History: Deep Vein Thrombosis (DVT) <Araceli Chua - Last Filed: 06/06/23 14:45> General Exam Limitations: no limitations <Araceli Chua - Last Filed: 06/06/23 14:45> Limitations: no limitations General appearance: alert, in no apparent distress Head exam: Present: atraumatic, normocephalic Eye exam: Present: normal appearance. Absent: scleral icterus, conjunctival injection Neck exam: Present: normal inspection, full ROM. Absent: tenderness Respiratory exam: Present: wheezes, other (Frequent nonproductive cough during exam). Absent: respiratory distress, rales, rhonchi, stridor, accessory muscle use Cardiovascular Exam: Present: regular rate, normal rhythm, normal heart sounds. Absent: systolic murmur, diastolic murmur, rubs, gallop GI/Abdominal exam: Present: soft. Absent: distended, tenderness, guarding, rebound, rigid, mass Extremities exam: Present: normal inspection, normal capillary refill. Absent: pedal edema, calf tenderness Back exam: Present: normal inspection. Absent: CVA tenderness (R), CVA tenderness (L) Neurological exam: Present: alert Skin exam: Present: warm, dry, intact, normal color. Absent: rash <Adolfo Ascencio - Last Filed: 06/09/23 07:58> - General Exam Comments Initial Comments: Visual Physical Exam Vital signs reviewed General: Well-appearing, nontoxic, no acute distress. Head: Normocephalic, atraumatic Eyes: PERRLA, EOMI ENT: Airway patent Chest: Nonlabored breathing Skin: No visual rash, normal skin tone Neuro: Alert and oriented 3 Musculoskeletal: No gross abnormalities (Araceli Chua) Course Vital Signs 06/06/23 06/06/23 06/06/23 13:27 17:32 17:52 Temperature 100.7 F H Pulse Rate 90 88 92 Respiratory 20 Rate Blood Pressure 99/63 O2 Sat by Pulse 100 Oximetry 06/06/23 06/06/23 18:30 19:25 Temperature 98.3 F Pulse Rate 82 Respiratory 18 Rate Blood Pressure 120/75 O2 Sat by Pulse 98 Oximetry Chest Pain MDM <Araceli Chua - Last Filed: 06/06/23 14:45> <Adolfo Ascencio - Last Filed: 06/09/23 07:58> - MDM I performed the quick note portion of this chart. Electronically signed by Araceli Chua PA-C (Araceli Chua) The patient had chest x-ray that interpreted as negative for acute infiltrate, pneumothorax, congestive heart failure. The heart size has improved from the comparison x-ray. Was pt. sent in by a medical professional or institution (HERACLIO Sotelo, OFFICE CASHIER, urgent care, hospital, or senior living...) When possible be specific @ -[No] Did you speak to anyone other than the patient for history (EMS, parent, family, police, friend...)? What history was obtained from this source @ -[No] Did you review nursing and triage notes (agree or disagree)? Why? @ -[I reviewed and agree with nursing and triage notes] Were old charts reviewed (outside hosp., previous admission, EMS record, old EKG, old radiological studies, urgent care reports/EKG's, senior living records)? Report findings @ -[No old charts were reviewed] Differential Diagnosis (chest pain, altered mental status, abdominal pain women, abdominal pain men, vaginal bleeding, weakness, fever, dyspnea, syncope, headache, dizziness, GI bleed, back pain, seizure, CVA, palpatations, mental health, musculoskeletal)? @ -[Differential Chest Pain: Stable Angina, Unstable Angina, STEMI, NSTEMI Aortic Dissection, Pneumothorax, Musculoskeletal, Esophageal Spasm GERD, Cholecystitis, Pancreatitis, Zoster, this is not meant to be an all-inclusive list. EKG interpreted by me (3pts min.). @ -[I interpreted as above] X-rays interpreted by me (1pt min.). @ -[I interpreted as above CT interpreted by me (1pt min.). @ -[None done] U/S interpreted by me (1pt. min.). @ -[None done] What testing was considered but not performed or refused? (CT, X-rays, U/S, labs)? Why? @ -[None] What meds were considered but not given or refused? Why? @ -[None] Did you discuss the management of the patient with other professionals (professionals i.e. HERACLIO Sotelo, OFFICE CASHIER, lab, RT, psych nurse, social media intern, digital cartographer, teacher, affirmative action officer, employment case manager)? Give summary @ -[No] Was smoking cessation discussed for >3mins.? @ -[No] Was critical care preformed (if so, how long)? @ -[No] Were there social determinants of health that impacted care today? How? (Homelessness, low income, unemployed, alcoholism, drug addiction, transportation, low edu. Level, literacy, decrease access to med. care, penitentiary, re hab)? @ -[No] Was there de-escalation of care discussed even if they declined (Discuss DNR or withdrawal of care, Hospice)? DNR status @ -[No] What co-morbidities impacted this encounter? (DM, HTN, Smoking, COPD, CAD, Cancer, CVA, ARF, Chemo, Hep., AIDS, mental health diagnosis, sleep apnea, morbid obesity)? @ -[None] Was patient admitted / discharged? Hospital course, mention meds given and [place], prescriptions, significant lab abnormalities, going to OR and other pertinent info. @ -[hospital course] Undiagnosed new problem with uncertain prognosis? @ -[No] Drug Therapy requiring intensive monitoring for toxicity (Heparin, Nitro, Insulin, Cardizem)? @ -[No] Were any procedures done? @ -[No] Diagnosis/symptom? @ -[Acute bronchitis Acute, or Chronic, or Acute on Chronic? @ -[Acute Uncomplicated (without systemic symptoms) or Complicated (systemic symptoms)? @ -[Uncomplicated Side effects of treatment? @ -[No] Exacerbation, Progression, or Severe Exacerbation? @ -[No] Poses a threat to life or bodily function? How? (Chest pain, [place], [place], pneumonia, PE, COPD, DKA, ARF, appy, cholecystitis, CVA, Diverticulitis, Homicidal, Suicidal, threat to staff... and all critical care pts) @ -[No] (Adolfo Ascencio) Disposition <Araceli Chua - Last Filed: 06/06/23 14:45> Is patient prescribed a controlled substance at d/c from ED?: No <Adolfo Ascencio - Last Filed: 06/09/23 07:58> Clinical Impression: Bronchitis, Near syncope Disposition: HOME SELF-CARE Instructions (If sedation given, give patient instructions): Syncope (ED), Acute Bronchitis (ED) Prescriptions: predniSONE [Deltasone] 20 mg PO BID #8 tab Albuterol Inhaler [Ventolin Hfa Inhaler] 2 puff INHALATION Q4HR PRN #8 gm PRN Reason: Wheezing Referrals: Delia Blanton DO [Primary Care Provider] - 1-2 days
[2023-06-06 15:28] LABS: ALT 17 U/L (4-34); AST 22 U/L (14-36); African American GFR (CKD) >90 (>60 ml/min/1.73 sqM); Alkaline Phosphatase 68 U/L (38-126); Anion Gap 8 mmol/L; Blood Urea Nitrogen 14 mg/dL (7-17); Calcium 8.8 mg/dL (8.4-10.2); Carbon Dioxide 26 mmol/L (22-30); Chloride 100 mmol/L (98-107); Glucose 93 mg/dL (74-99); Magnesium 1.7 mg/dL (1.6-2.3); Non-African American GFR(CKD) >90 (>60 ml/min/1.73 sqM); Sodium 134 mmol/L (137-145); Total Bilirubin 0.9 mg/dL (0.2-1.3); Total Protein 7.5 g/dL (6.3-8.2)
[2023-06-06 15:37] LABS: INR 0.9 (<1.2); Partial Thromboplastin Time 24.5 sec (22.0-30.0); Prothrombin Time 10.4 sec (10.0-12.5)
[2023-06-06] MEDS: ALBUTEROL NEBULIZED 2.5 MG/3 ML INHALATION STA (17:32)
[2023-06-06] MEDS: IBUPROFEN 400 MG TAB PO STA (17:45)
[2023-06-06] MEDS: SODIUM CHLORIDE 0.9% 1,000 ML IV ONE (17:46)
[2023-06-06 18:42] VITALS: BP 120/75; PULSE 82; RESP 18
[2023-06-06 19:47] VITALS: TEMP 98.3
== END 2023-06-06 19:25 | disposition home or self-care (01) ==
LOC: EC 13:19
DX: J40 Bronchitis, not specified as acute or chronic (principal); R55 Syncope and collapse; Z91.018 Allergy to other foods
CPT/HCPCS: 36415; 71046; 80053; 83735; 84484; 85025; 85610; 85730; 87636; 93005; 94640; 96360; 96361; 99285

== ENCOUNTER 2023-07-19 17:01 | Emergency (ER) | payer BC ==
[2023-07-19 17:26] VITALS: RESP 16; TEMP 98.4
--- NOTE | 2023-07-19 18:03 | US ---
EXAMINATION TYPE: US venous doppler duplex LE RT DATE OF EXAM: 07/19/2023 5:35 PM COMPARISON: NONE CLINICAL INDICATION: Female, 43 years old with history of pain/swelling; pain and tenderness in rt le g x 2-3 weeks. No hx of DVT. Not on blood thinners SIDE PERFORMED: Right TECHNIQUE: The lower extremity deep venous system is examined utilizing real time linear array sonog billie with graded compression, doppler sonography and color-flow sonography. VESSELS IMAGED: Common Femoral Vein Deep Femoral Vein Greater Saphenous Vein * Femoral Vein Popliteal Vein Small Saphenous Vein * Proximal Calf Veins (* superficial vessels) Right Leg: No evidence for DVT IMPRESSION: Grayscale, color doppler, spectral doppler imaging performed of the deep veins of the lo wer extremities. There is normal flow, compressibility, vascular waveforms.
--- NOTE | 2023-07-19 19:52 | ED ---
General Adult HPI - General Chief complaint: Extremity Problem,Nontraumatic Stated complaint: Abn Labs Time Seen by Provider: 07/19/23 19:40 Source: patient, RN notes reviewed, old records reviewed Mode of arrival: ambulatory Limitations: no limitations - History of Present Illness Initial comments: Patient is a 43-year-old female who presents emergency department for evaluation of right calf pain. Was sent here from PCP for venous duplex to rule out DVT. Has been ongoing for over a week. Is complaining of right calf pain. No obvious injuries or falls. No other acute complaints at this time. Able to ambulate. Is on her feet for work. Presents for further evaluation.Denies any history of blood clots, shortness of breath, recent long distance travel. - Related Data Home Medications Medication Instructions Recorded Confirmed Albuterol Inhaler [Ventolin Hfa 2 puff INHALATION RT-Q4H PRN 10/19/21 06/06/23 Inhaler] Nystatin 100,000 Unit/ml Susp 6 ml PO QID 06/06/23 06/06/23 [Mycostatin Oral Susp] Previous Rx's Medication Instructions Recorded Albuterol Inhaler [Ventolin Hfa 2 puff INHALATION Q4HR PRN #8 gm 06/06/23 Inhaler] predniSONE [Deltasone] 20 mg PO BID #8 tab 06/06/23 Cyclobenzaprine [Flexeril] 5 mg PO TID PRN 7 Days #21 tablet 07/19/23 Allergies Allergy/AdvReac Type Severity Reaction Status Date / Time [place] And Derivatives Allergy Anaphylaxis Verified 07/19/23 17:07 [[place]] peanut Allergy Anaphylaxis Verified 07/19/23 17:07 Review of Systems ROS Statement: Those systems with pertinent positive or pertinent negative responses have been documented in the HPI. Review of Systems: CONST: Denies fever EYES: Denies blurry vision ENT: Denies nasal congestion C/V: Denies Chest pain RESP: Denies shortness of breath GI: Denies abdominal pain : Denies dysuria SKIN: Denies rash. MSK: Endorses calf pain NEURO: Denies headache ROS Other: All systems not noted in ROS Statement are negative. Past Medical History Past Medical History: Asthma, Musculoskeletal Disorder, Osteoarthritis (OA) Additional Past Medical History / Comment(s): hx. anemia History of Any Multi-Drug Resistant Organisms: None Reported Past Surgical History: Section, Tubal Ligation Additional Past Surgical History / Comment(s): C/S x2 Past Anesthesia/Blood Transfusion Reactions: No Reported Reaction Past Psychological History: No Psychological Hx Reported Smoking Status: Never smoker Past Alcohol Use History: None Reported Past Drug Use History: None Reported - Past Family History Father Family Medical History: Deep Vein Thrombosis (DVT) General Exam - General Exam Comments Initial Comments: General: Appears in no acute distress. HEAD: Normal with no signs of head trauma. EYES: EOMI. ENT: Hearing grossly intact. RESPIRATORY: No respiratory distress. C/V: Regular rate and rhythm. ABD: Abdomen is nondistended. EXT: Right calf tenderness to palpation. No obvious edema. No obvious skin changes. Neurovascular intact. No obvious deformities. Full range of motion of the right knee and ankle. SKIN: No rashes or lesions observed on exposed skin. NEURO: Alert and oriented. Limitations: no limitations Course Vital Signs 07/19/23 07/19/23 17:04 20:07 Temperature 98.4 F Pulse Rate 85 73 Respiratory 16 16 Rate Blood Pressure 107/71 119/79 O2 Sat by Pulse 98 100 Oximetry Medical Decision Making - Medical Decision Making Was pt. sent in by a medical professional or institution (, PA, INSIGHTS ANALYST, urgent care, hospital, or retirement...) When possible be specific @ -Sent by PCP for DVT ultrasound Did you speak to anyone other than the patient for history (EMS, parent, family, police, friend...)? What history was obtained from this source @ -No Did you review nursing and triage notes (agree or disagree)? Why? @ -I reviewed and agree with nursing and triage notes Were old charts reviewed (outside hosp., previous admission, EMS record, old EKG, old radiological studies, urgent care reports/EKG's, retirement records)? Report findings @ -No old charts were reviewed Differential Diagnosis (chest pain, altered mental status, abdominal pain women, abdominal pain men, vaginal bleeding, weakness, fever, dyspnea, syncope, headache, dizziness, GI bleed, back pain, seizure, CVA, palpatations, mental health, musculoskeletal)? @ -Differential Musculoskeletal Muscular strain, contusion, ligament sprain, fracture, arthritis, septic arthritis, bursitis, cellulitis, muscle spasm, nerve compression, DVT, arterial occlusion, herpes zoster, electrolyte abnormality, tumor.... This is not meant to be in all inclusive list EKG interpreted by me (3pts min.). @ -None done X-rays interpreted by me (1pt min.). @ -None done CT interpreted by me (1pt min.). @ -None done U/S interpreted by me (1pt. min.). @ -No evidence of DVT on ultrasound of the right lower extremity. What testing was considered but not performed or refused? (CT, X-rays, U/S, labs)? Why? @ -None What meds were considered but not given or refused? Why? @ -None Did you discuss the management of the patient with other professionals (professionals i.e. , PA, INSIGHTS ANALYST, lab, RT, psych nurse, socially responsible investment adviser, landscape drafter, teacher, collections officer, casework manager)? Give summary @ -No Was smoking cessation discussed for >3mins.? @ -No Was critical care preformed (if so, how long)? @ -No Were there social determinants of health that impacted care today? How? (Homelessness, low income, unemployed, alcoholism, drug addiction, transportation, low edu. Level, literacy, decrease access to med. care, usp, rehab)? @ -No Was there de-escalation of care discussed even if they declined (Discuss DNR or withdrawal of care, Hospice)? DNR status @ -No What co-morbidities impacted this encounter? (DM, HTN, Smoking, COPD, CAD, Cancer, CVA, ARF, Chemo, Hep., AIDS, mental health diagnosis, sleep apnea, morbid obesity)? @ -None Was patient admitted / discharged? Hospital course, mention meds given and route, prescriptions, significant lab abnormalities, going to OR and other pertinent info. @ -Ultrasound obtained prior to me evaluate the patient. Presents for DVT ultrasound to rule out DVT of the right calf. DVT ultrasound unremarkable. I discussed results with the patient. Likely muscle strain. Recommended rest, ice, as well as [id number] analgesia medications as needed. Recommended elevation as well. Patient was in agreement this plan. She will be given a work note. Strict return precautions discussed. No concern for bony traumatic injury at this time as this is atraumatic. Vital signs within acceptable limitsNo concern for PE at this time. I will provide the patient with a prescription for Flexeril. I instructed the patient to follow up with their PCP in the next 1-3 days.. I explained that the patient should return to the emergency department if they experience any worsening symptoms. Strict return precautions were discussed with the patient. The patient expressed understanding of these instructions. I answered all que stions that the patient had. The patient was discharged home in good condition with their prescriptions and follow up information. Undiagnosed new problem with uncertain prognosis? @ -No Drug Therapy requiring intensive monitoring for toxicity (Heparin, Nitro, Insulin, Cardizem)? @ -No Were any procedures done? @ -No Diagnosis/symptom? @ -Right calf muscle strain Acute, or Chronic, or Acute on Chronic? @ -Acute Uncomplicated (without systemic symptoms) or Complicated (systemic symptoms)? @ -Uncomplicated Side effects of treatment? @ -No Exacerbation, Progression, or Severe Exacerbation? @ -No Poses a threat to life or bodily function? How? (Chest pain, [place], [place], pneumonia, PE, COPD, DKA, ARF, appy, cholecystitis, CVA, Diverticulitis, Homicidal, Suicidal, threat to staff... and all critical care pts) @ -No Disposition Clinical Impression: Strain of right calf muscle Disposition: HOME SELF-CARE Condition: Good Instructions (If sedation given, give patient instructions): Muscle Strain (ED) Prescriptions: Cyclobenzaprine [Flexeril] 5 mg PO TID PRN 7 Days #21 tablet PRN Reason: Pain Is patient prescribed a controlled substance at d/c from ED?: No Referrals: Delia Blanton DO [Primary Care Provider] - 1-2 days Time of Disposition: 19:50
[2023-07-19] MEDS: CYCLOBENZAPRINE 5 MG TAB PO STA (19:59)
[2023-07-19] MEDS: dexAMETHasone 4 MG TAB PO STA (19:59)
[2023-07-19 20:45] VITALS: BP 119/79; PULSE 73
== END 2023-07-19 20:08 | disposition home or self-care (01) ==
LOC: EC 17:01
DX: S86.911A Strain of unspecified muscle(s) and tendon(s) at lower leg level, right leg, initial encounter (principal); Z91.010 Allergy to peanuts; Z91.018 Allergy to other foods; X58.XXXA Exposure to other specified factors, initial encounter
CPT/HCPCS: 93971; 99283; J8540

== ENCOUNTER 2023-11-20 16:04 | Emergency (ER) | payer BC ==
[2023-11-20 16:07] VITALS: TEMP 98
--- NOTE | 2023-11-20 16:20 | ED ---
Lower Extremity Injury HPI - General Chief Complaint: Extremity Injury, Lower Stated Complaint: R knee pain Time Seen by Provider: 11/20/23 16:20 Source: patient, RN notes reviewed Mode of arrival: ambulatory Limitations: no limitations - History of Present Illness Initial Comments: 43-year-old female presents emergency department chief complaint of acute on chronic right knee pain. Patient states that approximately 2 years ago she underwent a right knee scope and have her meniscus repaired with Dr. Rodas. States that over the past 2 weeks she has been having worsening pain of the right knee with range of motion and with prolonged standing. Patient denies any recent trauma or injury to the right knee. Denies paresthesias. No other acute complaints at this time. - Related Data Home Medications Medication Instructions Recorded Confirmed Albuterol Inhaler [Ventolin Hfa 2 puff INHALATION RT-Q4H PRN 10/19/21 06/06/23 Inhaler] Nystatin 100,000 Unit/ml Susp 6 ml PO QID 06/06/23 06/06/23 [Mycostatin Oral Susp] Previous Rx's Medication Instructions Recorded Albuterol Inhaler [Ventolin Hfa 2 puff INHALATION Q4HR PRN #8 gm 06/06/23 Inhaler] predniSONE [Deltasone] 20 mg PO BID #8 tab 06/06/23 Cyclobenzaprine [Flexeril] 5 mg PO TID PRN 7 Days #21 tablet 07/19/23 Celecoxib [CeleBREX] 200 mg PO BID PRN #12 cap 11/20/23 Allergies Allergy/AdvReac Type Severity Reaction Status Date / Time Huntington And Derivatives Allergy Anaphylaxis Verified 11/20/23 16:07 [H[place]] peanut Allergy Anaphylaxis Verified 11/20/23 16:07 Review of Systems ROS Statement: Those systems with pertinent positive or pertinent negative responses have been documented in the HPI. ROS Other: All systems not noted in ROS Statement are negative. Past Medical History Past Medical History: Asthma, Musculoskeletal Disorder, Osteoarthritis (OA) Additional Past Medical History / Comment(s): hx. anemia History of Any Multi-Drug Resistant Organisms: None Reported Past Surgical History: Section, Tubal Ligation Additional Past Surgical History / Comment(s): C/S x2 Past Anesthesia/Blood Transfusion Reactions: No Reported Reaction Past Psychological History: No Psychological Hx Reported Smoking Status: Never smoker Past Alcohol Use History: None Reported Past Drug Use History: None Reported - Past Family History Father Family Medical History: Deep Vein Thrombosis (DVT) General Exam Limitations: no limitations Neck exam: Present: normal inspection. Absent: tenderness, meningismus, lymphadenopathy Respiratory exam: Present: normal lung sounds bilaterally. Absent: respiratory distress, wheezes, rales, rhonchi, stridor Cardiovascular Exam: Present: regular rate, normal rhythm, normal heart sounds. Absent: systolic murmur, diastolic murmur, rubs, gallop, clicks GI/Abdominal exam: Present: soft, normal bowel sounds. Absent: distended, tenderness, guarding, rebound, rigid Right Knee exam: Present: full ROM (pain with ROM), tenderness, swelling (anterior), pain/laxity with valgus, pain/laxity with varus. Absent: abrasion, laceration, ecchymosis, deformity Neurovascular tendon exam: Present: no vascular compromise Gait: observed and normal Back exam: Present: normal inspection Neurological exam: Present: alert, oriented X3, CN II-XII intact Skin exam: Present: warm, dry, intact, normal color. Absent: rash Course Vital Signs 11/20/23 11/20/23 16:05 17:06 Temperature 98 F Pulse Rate 76 74 Respiratory 20 18 Rate Blood Pressure 113/77 101/71 O2 Sat by Pulse 100 98 Oximetry Medical Decision Making - Medical Decision Making Was pt. sent in by a medical professional or institution (HERACLIO Sotelo, LONG WALL SHEAR OPERATOR, urgent care, hospital, or intermediate...) When possible be specific @ -No Did you speak to anyone other than the patient for history (EMS, parent, family, police, friend...)? What history was obtained from this source @ -No Did you review nursing and triage notes (agree or disagree)? Why? @ -I reviewed and agree with nursing and triage notes Were old charts reviewed (outside hosp., previous admission, EMS record, old EKG, old radiological studies, urgent care reports/EKG's, intermediate records)? Report findings @ -No old charts were reviewed Differential Diagnosis (chest pain, altered mental status, abdominal pain women, abdominal pain men, vaginal bleeding, weakness, fever, dyspnea, syncope, headache, dizziness, GI bleed, back pain, seizure, CVA, palpatations, mental health, musculoskeletal)? @ -Differential Musculoskeletal Muscular strain, contusion, ligament sprain, fracture, arthritis, septic arthritis, bursitis, cellulitis, muscle spasm, nerve compression, DVT, arterial occlusion, herpes zoster, electrolyte abnormality, tumor.... This is not meant to be in all inclusive list EKG interpreted by me (3pts min.). @ -None X-rays interpreted by me (1pt min.). @ -XR of the right knee reveals no acute osseous abnormality with mild degenerative joint changes CT interpreted by me (1pt min.). @ -None done U/S interpreted by me (1pt. min.). @ -None done What testing was considered but not performed or refused? (CT, X-rays, U/S, labs)? Why? @ -None What meds were considered but not given or refused? Why? @ -None Did you discuss the management of the patient with other professionals (professionals i.e. , PA, LONG WALL SHEAR OPERATOR, lab, RT, psych nurse, social services designee, energy technician, teacher, investment officer, case aide)? Give summary @ -No Was smoking cessation discussed for >3mins.? @ -No Was critical care preformed (if so, how long)? @ -No Were there social determinants of health that impacted care today? How? (Homelessness, low income, unemployed, alcoholism, drug addiction, transportation, low edu. Level, literacy, decrease access to med. care, skilled nursing, rehab)? @ -No Was there de-escalation of care discussed even if they declined (Discuss DNR or withdrawal of care, Hospice)? DNR status @ -No What co-morbidities impacted this encounter? (DM, HTN, Smoking, COPD, CAD, Cancer, CVA, ARF, Chemo, Hep., AIDS, mental health diagnosis, sleep apnea, morbid obesity)? @ -None Was patient admitted / discharged? Hospital course, mention meds given and route, prescriptions, significant lab abnormalities, going to OR and other pertinent info. @ -Discharge. 43-year-old female with right knee pain. On examination patient noted to have right knee pain with varus and valgus stress however full range of motion is intact. Patient is provided with Toradol pending results of x-ray. X-ray negative for acute process. Patient is provided with a prescription for Celebrex to take as needed for intermittent pain and instructed to rest, ice, elevate knee. Have patient follow-up with primary care provider or camp recreation specialist for further evaluation of right knee pain. All questions answered at bedside and strict return parameters mima with the patient she is verbalized understanding. Case discussed with Dr. Pride Undiagnosed new problem with uncertain prognosis? @ -No Drug Therapy requiring intensive monitoring for toxicity (Heparin, Nitro, Insulin, Cardizem)? @ -No Were any procedures done? @ -No Diagnosis/symptom? @ -Knee pain Acute, or Chronic, or Acute on Chronic? @ -Acute Uncomplicated (without systemic symptoms) or Complicated (systemic symptoms)? @ -Uncomplicated Side effects of treatment? @ -No Exacerbation, Progression, or Severe Exacerbation? @ -No Poses a threat to life or bodily function? How? (Chest pain, [place], [place], pneumonia, PE, COPD, DKA, ARF, appy, cholecystitis, CVA, Diverticulitis, Homicidal, Suicidal, threat to staff... and all critical care pts) @ -No Disposition Clinical Impression: Knee pain Disposition: HOME SELF-CARE Condition: Good Instructions (If sedation given, give patient instructions): Knee Pain (ED) Additional Instructions: Return to the emergency department for any new or worsening symptoms. Take medication as needed for pain relief. Recommend a follow-up with primary care provider or camp recreation specialist for further evaluation. Prescriptions: Celecoxib [CeleBREX] 200 mg PO BID PRN #12 cap PRN Reason: Pain Is patient prescribed a controlled substance at d/c from ED?: No Referrals: Delia Blanton DO [Primary Care Provider] - 1-2 days Time of Disposition: 16:56
[2023-11-20] MEDS: KETOROLAC 15 MG/ML 1 ML VIAL IM STA (16:39)
--- NOTE | 2023-11-20 16:42 | XR ---
EXAMINATION TYPE: XR knee complete RT DATE OF EXAM: 11/20/2023 COMPARISON: None HISTORY: Pain over 2 weeks TECHNIQUE: 3 view right knee FINDINGS: There is mild narrowing of the medial compartment joint space. Tiny medial femoral condylar and tibial plateau spurs are present. Lateral compartment joint space appear preserved. Patellofemor al joint space is preserved. Small posterior inferior patellar spurs present. No joint effusion is ev ident. No acute fractures or dislocations. Soft tissues appear unremarkable. Follow-up exams can be performed as clinically indicated. IMPRESSION: 1. No acute osseous abnormality right knee. 2. Mild degenerative joint changes of the medial compartment right knee
[2023-11-20 17:18] VITALS: BP 101/71; PULSE 74; RESP 18
== END 2023-11-20 17:12 | disposition home or self-care (01) ==
LOC: EC 16:04
CPT/HCPCS: 96372; 99283